=== PATIENT | male | born 1975 ===

== ENCOUNTER 2017-02-08 18:33 | Emergency (ER) | payer MEDICARE ==
[2017-02-08 18:38] VITALS: BMI 23.0
[2017-02-08 18:43] VITALS: TEMP 97.9; O2SAT 99
[2017-02-08] MEDS ORDERED: Alum-Mag Hydrox-Simethicone Susp (30 mL) PO STA (19:03)
--- NOTE | 2017-02-08 19:45 | ED PDOC ---
Arrival/HPI - General Chief Complaint: Abdominal Pain Time Seen by Provider: 02/08/17 18:54 - History of Present Illness Narrative History of Present Illness (Text): 02/08/17 19:44 Patient is a 41 y/o M with hx of Hep B cirrhosis, presenting with epigastric pain. Reports that 3 weeks ago he had ERCP at [facility]. He reports that he was pain free until yesterday when he developed epigastric/RUQ pain. Reports nausea. Denies vomiting, fever, dysuria, chest pain, shortness of breath, diarrhea/constipation. He reports that this pain is similar to prior episodes of pain that he has had. Reports GI follow-up on Sunday morning. Past Medical History - Provider Review Nursing Documentation Reviewed: Yes - Infectious Disease Hx of Infectious Diseases: None - Cardiac Hx Cardiac Disorders: No - Pulmonary Hx Respiratory Disorders: No - Neurological Hx Neurological Disorder: No - HEENT Hx HEENT Disorder: No - Renal Hx Renal Disorder: Yes Hx Kidney Stones: Yes - Endocrine/Metabolic Hx Endocrine Disorders: No - Hematological/Oncological Hx Blood Disorders: Yes Hx Hepatitis B: Yes - Integumentary Hx Dermatological Disorder: No Hx Basal Cell Carcinoma: No - Musculoskeletal/Rheumatological Hx Musculoskeletal Disorders: No - Gastrointestinal Hx Gastrointestinal Disorders: Yes Hx Gall Bladder Disease: Yes Hx Liver Failure: Yes (liver fibrosis) - Genitourinary/Gynecological Hx Prostate Problems: Yes - Psychiatric Hx Psychophysiologic Disorder: No Hx Substance Use: No - Surgical History Other/Comment: Endoscopic Retrograde Cholangiopancreatography. Liver surgery - Anesthesia Hx Anesthesia: Yes Hx Anesthesia Reactions: No Hx Malignant Hyperthermia: No - Suicidal Assessment Feels Threatened In Home Enviroment: No Family/Social History - Physician Review Nursing Documentation Reviewed: Yes Family/Social History: No Known Family HX Smoking Status: Never Smoked Hx Alcohol Use: No Hx Substance Use: No Allergies/Home Meds Allergies/Adverse Reactions: Allergies No Known Allergies Allergy (Verified 11/18/15 17:54) Home Medications: Home Meds Medication Instructions Recorded Confirmed Carvedilol [Coreg] 1 tab PO BID 12/25/15 02/08/17 Tenofovir [Viread] 300 mg PO DAILY 12/25/15 02/08/17 Ursodiol [Ursodiol] 1 tab PO BID 12/25/15 02/08/17 Review of Systems - Physician Review All systems were reviewed & negative as marked: Yes - Review of Systems Constitutional: absent: Weight Change Respiratory: absent: SOB, Cough, Sputum, Wheezing Cardiovascular: absent: Chest Pain, Palpitations, Edema, Calf Pain, FIERRO Gastrointestinal: Abdominal Pain, Nausea. absent: Constipation, Diarrhea, Vomiting Genitourinary Male: absent: Dysuria Skin: absent: Rash Psychiatric: absent: Anxiety Physical Exam Vital Signs Reviewed: Yes Vital Signs Temp Pulse Resp BP Pulse Ox 02/08/17 20:37 62 16 122/62 99 02/08/17 18:42 97.9 F 71 20 138/67 99 Temperature: Afebrile Blood Pressure: Normal Pulse: Regular Respiratory Rate: Normal Appearance: Positive for: Well-Appearing, Non-Toxic, Comfortable Pain Distress: None Mental Status: Positive for: Alert and Oriented X 3 - Systems Exam Head: Present: Atraumatic, Normocephalic Pupils: Present: PERRL Extroacular Muscles: Present: EOMI Conjunctiva: Present: Normal Mouth: Present: Moist Mucous Membranes Neck: Present: Normal Range of Motion Respiratory/Chest: Present: Clear to Auscultation Cardiovascular: Present: Regular Rate and Rhythm Abdomen: Present: Tenderness (epigastric). No: Distention, Guarding Back: Present: Normal Inspection Upper Extremity: Present: Normal Inspection Lower Extremity: Present: Normal Inspection Neurological: Present: GCS=15, CN II-XII Intact, Speech Normal Psychiatric: Present: Alert, Oriented x 3 Medical Decision Making ED Course and Treatment: 02/08/17 21:11 U/s Shows "Liver: Lobulated contour. Normal echogenicity. No discrete mass. No intrahepatic bile duct dilatation. Gallbladder: No gallstones. No wall thickening. No pericholecystic fluid. No sonographic Zelaya's sign. Common bile duct: No dilatation. No stones. Pancreas: Unremarkable as visualized. Kidneys: Normal echogenicity. 1.0 x 0.9 x 1.2 cm RIGHT renal cyst. No hydronephrosis. Spleen: Enlarged, 15.8 cm. Aorta: Obscured by overlying bowel gas. Inferior vena cava: Unremarkable. Free fluid: No significant free fluid. Other findings: Patent TIPS. IMPRESSION: 1. Cirrhosis. 2. Splenomegaly. 3. Incidental/non-acute findings are described above" EKG shows sinus bradycardia at 59bpm with LVH. No ST changes. Labs are at baseline. Patient has GI follow-up on February 12 (Sunday). Patient feels better and wants to go home. Will dc - Lab Interpretations Lab Results: 02/08/17 19:25 02/08/17 19:25 Lab Results 02/08/17 19:25: Sodium 142, Potassium 4.0, Chloride 109 H, Carbon Dioxide 26, Anion Gap 11, BUN 9, Creatinine 0.6, Est GFR ( Amer) > 60, Est GFR (Non- Af Amer) > 60, Random Glucose 112 H, Calcium 8.4, Phosphorus 3.7, Magnesium 2.0 , Total Bilirubin 1.3, AST 58, ALT 44, Alkaline Phosphatase 195 H, Total Protein 6.5, Albumin 2.7 L, Globulin 3.8, Albumin/Globulin Ratio 0.7 L, Lipase 523 H 02/08/17 19:25: WBC 2.4 L*, RBC 5.64, Hgb 13.0 L, Hct 38.1 L, MCV 67.6 L, MCH 23.0 L, MCHC 34.1, RDW 15.8 H, Plt Count 33 L*, Gran % 61.2, Lymph % (Auto) 28.8 , [place] % (Auto) 8.3 H, Eos % (Auto) 1.3 L, Baso % (Auto) 0.4, Gran # 1.47, Lymph # 0.7 L, [place] # 0.2, Eos # 0.0, Baso # 0.01 - RAD Interpretation Radiology Orders: 02/08/17 19:09 ABDOMEN COMPLETE [US] Stat - Medication Orders Current Medication Orders: Discontinued Medications Al Hydrox/Mg Hydrox/Simethicone (Maalox Plus 30 Ml) 30 ml PO STAT STA Stop: 02/08/17 19:04 Last Admin: 02/08/17 19:36 Dose: 30 ml Famotidine (Pepcid) 20 mg IVP STAT STA Stop: 02/08/17 19:04 Last Admin: 02/08/17 19:36 Dose: 20 mg IVP Administration Document 02/08/17 19:36 OCS (Rec: 02/08/17 19:36 OCS [id number]) Charges for Administration # of IVP Administrations 1 Disposition/Present on Arrival - Present on Arrival Any Indicators Present on Arrival: No History of DVT/PE: No History of Uncontrolled Diabetes: No Urinary Catheter: No History of Decub. Ulcer: No History Surgical Site Infection Following: None - Disposition Have Diagnosis and Disposition been Completed?: Yes Diagnosis: Epigastric pain Disposition: HOME/ ROUTINE Disposition Time: 21:11 Patient Plan: Discharge Condition: GOOD Additional Instructions: Follow-up with your GI Physician on Sunday. Return to ED if condition worsens. Follow-up with PMD within 2 days. Prescriptions: Famotidine [Pepcid] 40 mg PO DAILY #30 tab Referrals: Josue Morfin MD [Primary Care Provider] - Follow up with primary Forms: [place] (Citizen [place])
[2017-02-08 19:59] LABS: ALB/GLOB RATIO 0.7 (1.1-1.8); ALKALINE PHOSPHATASE 195 U/L (38-126); ALT/SGPT 44 U/L (7-56); AST/SGOT 58 U/L (17-59); BILIRUBIN,TOTAL 1.3 mg/dL (0.2-1.3); BLOOD UREA NITROGEN 9 mg/dL (7-21); CALCIUM 8.4 mg/dL (8.4-10.5); CARBON DIOXIDE 26 mmol/L (21-33); CHLORIDE 109 mmol/L (98-107); GFR AFRICAN-AMERICAN > 60; GLUCOSE,RANDOM 112 mg/dL (70-110); LIPASE 523 U/L (23-300); PHOSPHOROUS 3.7 mg/dL (2.5-4.5); SODIUM 142 mmol/L (132-148); TOTAL PROTEIN 6.5 g/dL (5.8-8.3)
[2017-02-08 20:02] LABS: BASO # 0.01 K/mm3 (0.0-2.0); BASO % 0.4 % (0.0-3.0); EOS % 1.3 % (1.5-5.0); GRAN # 1.47 (1.4-6.5); GRAN % 61.2 % (50.0-68.0); HEMATOCRIT 38.1 % (42.0-52.0); LYMPH # 0.7 (1.2-3.4); LYMPH % 28.8 % (22.0-35.0); MEAN CELL VOLUME 67.6 fl (80.0-105.0); MEAN CORPUSCULAR HGB CONC 34.1 g/dl (31.0-37.0); MONO # 0.2 (0.1-0.6); MONO % 8.3 % (1.0-6.0); RED CELL DISTRIBUTION WIDTH 15.8 % (11.5-14.5)
[2017-02-08 20:11] LABS: PLATELET COUNT 33 10^3/uL (120.0-450.0); WHITE BLOOD COUNT 2.4 10^3/ul (4.5-11.0)
[2017-02-08 20:38] VITALS: BP 122/62; PULSE 62; RESP 16
--- NOTE | 2017-02-08 21:05 | US ---
EXAM: US Abdomen Complete CLINICAL HISTORY: 41 years old, male; Pain; Abdominal pain; Epigastric; Prior surgery; Surgery date: 6+ months; Surgery type: Tips 8 yrs; Additional info: Epigastric, ruq pain TECHNIQUE: Real-time ultrasound of the abdomen (complete) with image documentation. COMPARISON: CT - ABD PELVIS W/O PO OR IV CONT 01/12/2016 9:50:05 AM FINDINGS: Liver: Lobulated contour. Normal echogenicity. No discrete mass. No intrahepatic bile duct dilatation. Gallbladder: No gallstones. No wall thickening. No pericholecystic fluid. No sonographic Zelaya's sign. Common bile duct: No dilatation. No stones. Pancreas: Unremarkable as visualized. Kidneys: Normal echogenicity. 1.0 x 0.9 x 1.2 cm RIGHT renal cyst. No hydronephrosis. Spleen: Enlarged, 15.8 cm. Aorta: Obscured by overlying bowel gas. Inferior vena cava: Unremarkable. Free fluid: No significant free fluid. Other findings: Patent TIPS. IMPRESSION: 1. Cirrhosis. 2. Splenomegaly. 3. Incidental/non-acute findings are described above.
== END 2017-02-08 21:12 | disposition home or self-care (01) ==
LOC: ED 18:33
DX: R10.13 Epigastric pain (principal); B19.10 Unspecified viral hepatitis B without hepatic coma; K74.0 Hepatic fibrosis

== ENCOUNTER 2017-08-09 16:14 | Emergency (ER) | payer MEDICARE ==
[2017-08-09 17:42] VITALS: BMI 21.9
[2017-08-09 17:58] VITALS: RESP 18; TEMP 98.5
--- NOTE | 2017-08-09 18:22 | ED PDOC ---
Arrival/HPI - General Chief Complaint: Back Pain Time Seen by Provider: 08/09/17 17:35 Historian: Patient - History of Present Illness Narrative History of Present Illness (Text): 08/09/17 18:22 Patient is a 42 y/o M with hx of Hep B cirrhosis, renal stone, presenting with right flank pain x 2 hours. Patient stated " my kidney hurts", pointing at his right flank. Patient stated he had similar symptom in the past affecting his left "kidney". Patient denies other somatic complains. Time/Duration: Other (see hpi) Quality: Aching Context: Home Past Medical History - Provider Review Nursing Documentation Reviewed: Yes - Infectious Disease Hx of Infectious Diseases: None - Cardiac Hx Cardiac Disorders: No - Pulmonary Hx Respiratory Disorders: No - Neurological Hx Neurological Disorder: No - HEENT Hx HEENT Disorder: No - Renal Hx Renal Disorder: Yes Hx Kidney Stones: Yes - Endocrine/Metabolic Hx Endocrine Disorders: No - Hematological/Oncological Hx Blood Disorders: Yes Hx Hepatitis B: Yes - Integumentary Hx Dermatological Disorder: No Hx Basal Cell Carcinoma: No - Musculoskeletal/Rheumatological Hx Musculoskeletal Disorders: No - Gastrointestinal Hx Gastrointestinal Disorders: Yes Hx Gall Bladder Disease: Yes Hx Liver Failure: Yes (liver fibrosis) - Genitourinary/Gynecological Hx Prostate Problems: Yes - Psychiatric Hx Psychophysiologic Disorder: No Hx Substance Use: No - Surgical History Other/Comment: Endoscopic Retrograde Cholangiopancreatography. Liver surgery - Anesthesia Hx Anesthesia: Yes Hx Anesthesia Reactions: No Hx Malignant Hyperthermia: No - Suicidal Assessment Feels Threatened In Home Enviroment: No Family/Social History - Physician Review Nursing Documentation Reviewed: Yes Family/Social History: Other (noncontributory) Smoking Status: Never Smoked Hx Alcohol Use: No Hx Substance Use: No Allergies/Home Meds Allergies/Adverse Reactions: Allergies No Known Allergies Allergy (Verified 08/09/17 17:41) Home Medications: Home Meds Medication Instructions Recorded Confirmed Carvedilol [Coreg] 1 tab PO BID 12/25/15 08/09/17 Tenofovir [Viread] 300 mg PO DAILY 12/25/15 08/09/17 Ursodiol [Ursodiol] 1 tab PO BID 12/25/15 08/09/17 Review of Systems - Review of Systems Constitutional: Normal. absent: Fatigue, Weight Change, Fevers, Night Sweats Eyes: Normal ENT: Normal Respiratory: Normal Cardiovascular: Normal Gastrointestinal: Abdominal Pain (right flank pain), Nausea. absent: Constipation, Diarrhea, Vomiting Genitourinary Male: Normal. absent: Dysuria, Frequency, Hematuria Musculoskeletal: Normal Skin: Normal Neurological: Normal Endocrine: Normal Hemo/Lymphatic: Normal Psychiatric: Normal Physical Exam Vital Signs Temp Pulse Resp BP Pulse Ox 08/09/17 20:34 62 18 117/64 100 08/09/17 17:58 98.5 F 61 18 101/51 L 97 Temperature: Afebrile Blood Pressure: Normal Pulse: Regular Respiratory Rate: Normal Appearance: Positive for: Well-Appearing, Non-Toxic, Comfortable Pain Distress: None Mental Status: Positive for: Alert and Oriented X 3 - Systems Exam Head: Present: Atraumatic, Normocephalic Pupils: Present: PERRL Extroacular Muscles: Present: EOMI Conjunctiva: Present: Normal Mouth: Present: Moist Mucous Membranes Neck: Present: Normal Range of Motion. No: Meningeal Signs Respiratory/Chest: Present: Clear to Auscultation, Good Air Exchange. No: Respiratory Distress, Accessory Muscle Use Cardiovascular: Present: Regular Rate and Rhythm, Normal S1, S2. No: Murmurs Abdomen: Present: Normal Bowel Sounds. No: Tenderness, Distention, Peritoneal Signs, Rebound, Guarding Back: Present: Normal Inspection. No: CVA Tenderness Upper Extremity: Present: Normal Inspection. No: Cyanosis, Edema Lower Extremity: Present: Normal Inspection. No: Edema Neurological: Present: GCS=15, CN II-XII Intact, Speech Normal, Motor Func Grossly Intact, Normal Sensory Function, Normal Cerebellar Funct, Gait Normal Skin: Present: Warm, Dry, Normal Color. No: Rashes Psychiatric: Present: Alert, Oriented x 3, Normal Insight, Normal Concentration Medical Decision Making - Lab Interpretations Lab Results: 08/09/17 19:37 08/09/17 19:37 Lab Results 08/09/17 19:37: PT 17.1 H, INR 1.49 H, APTT 38.3 H 08/09/17 19:37: Ammonia 55 H 08/09/17 19:37: Sodium 143, Potassium 4.0, Chloride 109 H, Carbon Dioxide 27, Anion Gap 11, BUN 14, Creatinine 0.7 L, Est GFR ( Amer) > 60, Est GFR ( Non-Af Amer) > 60, Random Glucose 115 H, Calcium 8.9, Total Bilirubin 1.8 H, AST 66 H, ALT 43, Alkaline Phosphatase 238 H D, Total Protein 7.1, Albumin 2.9 L , Globulin 4.1, Albumin/Globulin Ratio 0.7 L, Lipase 150 08/09/17 19:37: WBC 2.8 L*, RBC 6.14 H, Hgb 13.8 L, Hct 41.5 L, MCV 67.6 L, MCH 22.5 L, MCHC 33.3, RDW 16.7 H, Plt Count 45 L*, Gran % 65.2, Lymph % (Auto) 28.0 , [place] % (Auto) 6.1 H, Eos % (Auto) 0.7 L, Baso % (Auto) 0.0, Gran # 1.82, Lymph # (Auto) 0.8 L, [place] # (Auto) 0.2, Eos # (Auto) 0.0, Baso # (Auto) 0.00 08/09/17 19:35: Urine Color Yellow, Urine Appearance Sl cloudy, Urine pH 8.5, Ur Specific [place] 1.015, Urine Protein Trace H, Urine Glucose (UA) 250 H, Urine Ketones Negative, Urine Blood Moderate H, Urine Nitrate Negative, Urine Bilirubin Negative, Urine Urobilinogen 1.0 H, Ur Leukocyte Esterase Negative, Urine RBC 25 - 30, Urine WBC 0 - 2, Ur Epithelial Cells 0 - 2, Urine Bacteria Few - RAD Interpretation Narrative RAD Interpretations (Text): 08/09/17 21:36 EXAM: CT Abdomen and Pelvis Without Intravenous Contrast FINDINGS: LUNG BASES: No significant abnormality identified. ABDOMEN: LIVER: Liver is cirrhotic in appearance. Multiple abdominal collateral vessels again seen, compatible with portal hypertension. TIPS shunt again seen in the liver, stable in position. Note that shunt patency cannot be evaluated on this unenhanced exam. Stable appearance of an indeterminate 2 x 1 cm low density liver lesion, not definitely a cyst given its density. No evidence of diffuse liver lesions. GALLBLADDER AND BILE DUCTS: Gallbladder appears diffusely thick walled, image 61 of series 3. No evidence of pericholecystic fluid, pericholecystic inflammation, gallbladder dilatation, or radiopaque gallstones. No evidence of significant biliary ductal dilatation. PANCREAS: No CT evidence of acute pancreatitis. SPLEEN: Stable moderate splenomegaly, with the spleen measuring 15 cm in AP dimensions. ADRENALS: No acute abnormality of the adrenal glands identified. KIDNEYS AND URETERS: Nonobstructing right renal stones. Low density lesion in the right kidney, most likely a cyst. This measures 1.1 cm No evidence of hydroureteronephrosis. STOMACH AND BOWEL: No acute abnormality of the stomach, small bowel or colon identified. No evidence of bowel obstruction. APPENDIX: Appendix is seen, and is within normal limits in appearance. PELVIS: BLADDER: No acute abnormality of the bladder identified. REPRODUCTIVE: Prostate gland is enlarged. ABDOMEN and PELVIS: INTRAPERITONEAL SPACE: No evidence of free intraperitoneal air or fluid. BONES/JOINTS: No acute fractures or other acute bony abnormality noted. SOFT TISSUES: No acute abnormality of the visualized soft tissues is seen. VASCULATURE: No evidence of abdominal aortic aneurysm. Negative. LYMPH NODES: No evidence of diffuse lymphadenopathy. IMPRESSION: - Gallbladder wall thickening, with no additional evidence of gallbladder pathology by CT. This could be due to underlying chronic liver disease. If there is any clinical concern for early acute cholecystitis, consider right upper quadrant ultrasound for further evaluation. - Otherwise, no evidence of significant acute process. - Stable findings compared to an 01/12/2016 CT. - Cirrhotic liver, with a TIPS shunt in place. - Stable 2 cm indeterminate liver lesion. This could be further evaluated with nonemergent liver protocol CT or MRI, as clinically indicated. - Stable splenomegaly. - See above for remaining findings. Radiology Orders: 08/09/17 18:23 ABD & PELVIS W/O PO OR IV CONT [CT] Stat - Medication Orders Current Medication Orders: Discontinued Medications Sodium Chloride (Sodium Chloride 0.9%) 1,000 mls @ 999 mls/hr IV .Q1H1M STA Stop: 08/09/17 19:24 Last Admin: 08/09/17 19:41 Dose: 999 mls/hr eMAR Start Stop Document 08/09/17 19:41 CNR (Rec: 08/09/17 19:41 CNR [id number]) Intravenous Solution Start Date 08/09/17 Start Time 19:41 Ketorolac Tromethamine (Toradol) 15 mg IVP STAT STA Stop: 08/09/17 18:25 Last Admin: 08/09/17 19:40 Dose: 15 mg MAR Pain Assessment Document 08/09/17 19:40 CNR (Rec: 08/09/17 19:40 CNR [id number]) Pain Reassessment Is this a pain reassessment? Yes IVP Administration Document 08/09/17 19:40 CNR (Rec: 08/09/17 19:40 CNR [id number]) Charges for Administration # of IVP Administrations 1 Disposition/Present on Arrival - Present on Arrival Any Indicators Present on Arrival: No History of DVT/PE: No History of Uncontrolled Diabetes: No Urinary Catheter: No History of Decub. Ulcer: No History Surgical Site Infection Following: None - Disposition Have Diagnosis and Disposition been Completed?: Yes Diagnosis: Right flank pain, Liver cirrhosis Disposition: HOME/ ROUTINE Disposition Time: 21:41 Patient Plan: Discharge Condition: GOOD Discharge Instructions (ExitCare): Acute Abdomen (Belly Pain) Additional Instructions: Call private doctor and [employer] for follow up visit in 1-2 days. Continue with home Lactulose to treat elevated ammonia. Return to emergency if symptoms worsen. Prescriptions: Ibuprofen [Motrin] 400 mg PO Q8H PRN #20 tab PRN Reason: Pain, Severe (8-10) Referrals: Josue Morfin MD [Primary Care Provider] - Follow up with primary Forms: [employer] (Chinese)
[2017-08-09] MEDS ORDERED: Sodium Chloride 0.9% 1,000 ML IV STA (18:24)
[2017-08-09 19:59] LABS: PH,URINE 8.5 (4.7-8.0); URINE BILIRUBIN NEGATIVE (NEGATIVE); URINE BLOOD MODERATE (NEGATIVE); URINE GLUCOSE (UA) 250 mg/dL (NEGATIVE); URINE LEUKOCYTE ESTERASE NEGATIVE Leu/uL (NEGATIVE); URINE PROTEIN TRACE mg/dL (<30 mg/dL)
[2017-08-09 20:00] LABS: EOS % 0.7 % (1.5-5.0); GRAN # 1.82 (1.4-6.5); GRAN % 65.2 % (50.0-68.0); HEMOGLOBIN 13.8 g/dL (14.0-18.0); LYMPH # 0.8 (1.2-3.4); MEAN CELL VOLUME 67.6 fl (80.0-105.0); MEAN CORPUSCULAR HEMOGLOBIN 22.5 pg (25.0-35.0); MEAN CORPUSCULAR HGB CONC 33.3 g/dl (31.0-37.0); MONO # 0.2 (0.1-0.6); MONO % 6.1 % (1.0-6.0); PLATELET COUNT 45 10^3/uL (120.0-450.0); RBC 6.14 10^6/uL (3.5-6.1); RED CELL DISTRIBUTION WIDTH 16.7 % (11.5-14.5)
[2017-08-09 20:02] LABS: INR 1.49 (0.93-1.08); PARTIAL THROMBOPLASTIN TIME 38.3 Seconds (25.1-36.5); PROTHROMBIN TIME 17.1 SECONDS (9.4-12.5)
[2017-08-09 20:03] LABS: URINE COLOR YELLOW (YELLOW)
[2017-08-09 20:05] LABS: ALB/GLOB RATIO 0.7 (1.1-1.8); ALBUMIN 2.9 g/dL (3.0-4.8); ALT/SGPT 43 U/L (7-56); AST/SGOT 66 U/L (17-59); BLOOD UREA NITROGEN 14 mg/dL (7-21); CALCIUM 8.9 mg/dL (8.4-10.5); GFR AFRICAN-AMERICAN > 60; GFR NON-AFRICAN AMERICAN > 60; LIPASE 150 U/L (23-300)
[2017-08-09 20:06] LABS: URINE APPEARANCE SL CLOUDY (CLEAR)
[2017-08-09 20:07] LABS: URINE BACTERIA FEW (NEG); URINE EPITHELIAL CELLS 0 - 2 /hpf (0-5); URINE RBC 25 - 30 /hpf (0-2); URINE WBC 0 - 2 /hpf (0-6)
[2017-08-09 20:10] LABS: WHITE BLOOD COUNT 2.8 10^3/ul (4.5-11.0)
[2017-08-09 20:35] VITALS: BP 117/64; PULSE 62; O2SAT 100
--- NOTE | 2017-08-09 21:33 | CT ---
EXAM: CT Abdomen and Pelvis Without Intravenous Contrast EXAM DATE/TIME: 08/09/2017 6:23 PM CLINICAL HISTORY: 42 years old, male; Pain; Abdominal pain; Flank; Right; Prior surgery; Surgery type: Liver SX - endoscopic retrograde cholangopancreatography; Additional info: Right flank pain TECHNIQUE: Axial computed tomography images of the abdomen and pelvis without intravenous contrast. All CT scans at this facility use one or more dose reduction techniques, viz.: automated exposure control; ma/kV adjustment per patient size (including targeted exams where dose is matched to indication; i.e. head); or iterative reconstruction technique. Coronal and sagittal reformatted images were created and reviewed. COMPARISON: Prior CT abdomen and pelvis of 2016-01-12 FINDINGS: LUNG BASES: No significant abnormality identified. ABDOMEN: LIVER: Liver is cirrhotic in appearance. Multiple abdominal collateral vessels again seen, compatible with portal hypertension. TIPS shunt again seen in the liver, stable in position. Note that shunt patency cannot be evaluated on this unenhanced exam. Stable appearance of an indeterminate 2 x 1 cm low density liver lesion, not definitely a cyst given its density. No evidence of diffuse liver lesions. GALLBLADDER AND BILE DUCTS: Gallbladder appears diffusely thick walled, image 61 of series 3. No evidence of pericholecystic fluid, pericholecystic inflammation, gallbladder dilatation, or radiopaque gallstones. No evidence of significant biliary ductal dilatation. PANCREAS: No CT evidence of acute pancreatitis. SPLEEN: Stable moderate splenomegaly, with the spleen measuring 15 cm in AP dimensions. ADRENALS: No acute abnormality of the adrenal glands identified. KIDNEYS AND URETERS: Nonobstructing right renal stones. Low density lesion in the right kidney, most likely a cyst. This measures 1.1 cm No evidence of hydroureteronephrosis. STOMACH AND BOWEL: No acute abnormality of the stomach, small bowel or colon identified. No evidence of bowel obstruction. APPENDIX: Appendix is seen, and is within normal limits in appearance. PELVIS: BLADDER: No acute abnormality of the bladder identified. REPRODUCTIVE: Prostate gland is enlarged. ABDOMEN and PELVIS: INTRAPERITONEAL SPACE: No evidence of free intraperitoneal air or fluid. BONES/JOINTS: No acute fractures or other acute bony abnormality noted. SOFT TISSUES: No acute abnormality of the visualized soft tissues is seen. VASCULATURE: No evidence of abdominal aortic aneurysm. Negative. LYMPH NODES: No evidence of diffuse lymphadenopathy. IMPRESSION: - Gallbladder wall thickening, with no additional evidence of gallbladder pathology by CT. This could be due to underlying chronic liver disease. If there is any clinical concern for early acute cholecystitis, consider right upper quadrant ultrasound for further evaluation. - Otherwise, no evidence of significant acute process. - Stable findings compared to an 01/12/2016 CT. - Cirrhotic liver, with a TIPS shunt in place. - Stable 2 cm indeterminate liver lesion. This could be further evaluated with nonemergent liver protocol CT or MRI, as clinically indicated. - Stable splenomegaly. - See above for remaining findings.
== END 2017-08-09 22:14 | disposition home or self-care (01) ==
LOC: ED 16:14
DX: K74.60 Unspecified cirrhosis of liver (principal); R10.9 Unspecified abdominal pain
CPT/HCPCS: 74176; 80053; 81001; 82140; 83690; 85025; 85610; 85730; 96374; 99283; J1885; J7040

== ENCOUNTER 2017-08-13 23:21 | Inpatient (IN) | payer MEDICARE ==
[2017-08-13 23:48] VITALS: O2SAT 99
[2017-08-14] MEDS ORDERED: HYDROmorphone 1 mg/ml ISec IVP STA (00:01)
[2017-08-14] MEDS ORDERED: Sodium Chloride 0.9% 1,000 ML IV STA (00:01)
--- NOTE | 2017-08-14 00:41 | ED PDOC ---
Arrival/HPI - General Chief Complaint: Male Genitourinary Time Seen by Provider: 08/13/17 23:54 Historian: Patient - History of Present Illness Narrative History of Present Illness (Text): 08/14/17 00:20 42 year old male, whose past medical history includes Hep B cirrhosis and renal stone, presents to the emergency department complaining of worsening left flank pain that began 2 days ago. Patient reports he was in the emergency department a few days ago for similar symptoms when he reportedly states he was diagnosed with kidney stones and discharged with no pain medications and to follow up with the urologist. Patient states he has not followed up with the urologist yet. Patient reports blood in urine, but denies any fever, chills, chest pain, shortness of breath, nausea, vomiting, diarrhea, back pain, neck pain, headache , dizziness, or any other complaints. Time/Duration: Other (few days ) Symptom Onset: Gradual Symptom Course: Worsening Activities at Onset: Light Context: Home Past Medical History - Infectious Disease Hx of Infectious Diseases: None - Cardiac Hx Cardiac Disorders: No - Pulmonary Hx Respiratory Disorders: No - Neurological Hx Neurological Disorder: No - HEENT Hx HEENT Disorder: No - Renal Hx Renal Disorder: Yes Hx Kidney Stones: Yes - Endocrine/Metabolic Hx Endocrine Disorders: No - Hematological/Oncological Hx Blood Disorders: Yes Hx Hepatitis B: Yes - Integumentary Hx Dermatological Disorder: No Hx Basal Cell Carcinoma: No - Musculoskeletal/Rheumatological Hx Musculoskeletal Disorders: No - Gastrointestinal Hx Gastrointestinal Disorders: Yes Hx Gall Bladder Disease: Yes Hx Liver Failure: Yes (liver fibrosis) Other/Comment: Liver Cirrhosis - Genitourinary/Gynecological Hx Prostate Problems: Yes Other/Comment: Kidney Stones - Psychiatric Hx Psychophysiologic Disorder: No Hx Substance Use: No - Surgical History Other/Comment: Endoscopic Retrograde Cholangiopancreatography. Liver surgery - Anesthesia Hx Anesthesia: Yes Hx Anesthesia Reactions: No Hx Malignant Hyperthermia: No - Suicidal Assessment Feels Threatened In Home Enviroment: No Family/Social History Family/Social History: No Known Family HX Smoking Status: Never Smoked Hx Alcohol Use: No Hx Substance Use: No Allergies/Home Meds Allergies/Adverse Reactions: Allergies No Known Allergies Allergy (Verified 08/09/17 17:41) Home Medications: Home Meds Medication Instructions Recorded Confirmed Carvedilol [Coreg] 1 tab PO BID 12/25/15 08/13/17 Tenofovir [Viread] 300 mg PO DAILY 12/25/15 08/13/17 Ursodiol 1 tab PO BID 12/25/15 08/13/17 Percocet 10-325 mg Tablet 10 - 325 mg PO Q6H 08/14/17 08/14/17 Review of Systems - Physician Review All systems were reviewed & negative as marked: Yes - Review of Systems Constitutional: absent: Fevers, Other (Chills) Respiratory: absent: SOB Cardiovascular: absent: Chest Pain Gastrointestinal: Abdominal Pain (right flank pain). absent: Diarrhea, Nausea, Vomiting Genitourinary Male: Hematuria. absent: Dysuria, Frequency Musculoskeletal: absent: Back Pain, Neck Pain Neurological: absent: Headache, Dizziness Physical Exam Vital Signs Reviewed: Yes Vital Signs Temp Pulse Resp BP Pulse Ox 08/14/17 03:10 65 18 125/67 99 08/13/17 23:45 98.2 F 60 19 123/63 99 Temperature: Afebrile Blood Pressure: Normal Pulse: Regular Respiratory Rate: Normal Appearance: Positive for: Well-Appearing, Non-Toxic, Comfortable Pain Distress: None Mental Status: Positive for: Alert and Oriented X 3 - Systems Exam Head: Present: Atraumatic, Normocephalic Pupils: Present: PERRL Extroacular Muscles: Present: EOMI Conjunctiva: Present: Normal Mouth: Present: Moist Mucous Membranes Neck: Present: Normal Range of Motion Respiratory/Chest: Present: Clear to Auscultation, Good Air Exchange. No: Respiratory Distress, Accessory Muscle Use Cardiovascular: Present: Regular Rate and Rhythm, Normal S1, S2. No: Murmurs Abdomen: No: Tenderness, Distention, Peritoneal Signs Back: Present: Normal Inspection Upper Extremity: Present: Normal Inspection. No: Cyanosis, Edema Lower Extremity: Present: Normal Inspection. No: Edema Neurological: Present: GCS=15, CN II-XII Intact, Speech Normal Skin: Present: Warm, Dry, Normal Color. No: Rashes Psychiatric: Present: Alert, Oriented x 3, Normal Insight, Normal Concentration Medical Decision Making ED Course and Treatment: 08/14/17 00:30 Impression: 42 year old male presents complaining of right flank pain that began a few days ago associated with hematuria. Plan: -- VBG -- CT Abs, Pel No PO or IV Contrast -- Labs -- Dilaudid, IV Fluids, Toradol, Zofran Inj -- Urinalysis -- Reassess and disposition Prior Visits: Notes and results from previous visits were reviewed. Patient was last seen in the emergency department on 08/09/17 presents complaining of right flank pain that began 2 hours ago. Patient was discharged Progress Notes: Went back to evaluate patient again with shipwright to verify patient was discharged with the diagnosis of kidney stones due to the different diagnosis seen in his chart. CT results from 08/09/17 shows: EXAM: CT Abdomen and Pelvis Without Intravenous Contrast IMPRESSION: - Gallbladder wall thickening, with no additional evidence of gallbladder pathology by CT. This could be due to underlying chronic liver disease. If there is any clinical concern for early acute cholecystitis, consider right upper quadrant ultrasound for further evaluation. - Otherwise, no evidence of significant acute process. - Stable findings compared to an 01/12/2016 CT. - Cirrhotic liver, with a TIPS shunt in place. - Stable 2 cm indeterminate liver lesion. This could be further evaluated with nonemergent liver protocol CT or MRI, as clinically indicated. - Stable splenomegaly. - See above for remaining findings. 08/14/17 02:35 EXAM: CT Abdomen and Pelvis Without Intravenous Contrast Dictated and Authenticated by: Aleshia Blake MD 08/14/2017 2:08 AM IMPRESSION: 1. 5 mm calculus is noted in the proximal to mid ureter causing mild right hydronephrosis. 2. The spleen is massively enlarged. 3. The liver demonstrates heterogenous appearance suspicious for hepatoparenchyma disease. There is a low-density ovoid focus noted in the liver measuring 1.5 cm cannot be evaluated. Dedicated liver imaging is advised on non-emergent basis. 08/14/17 04:06 Case discussed with [facility] and Dr. Velasquez who is aware and agrees with the plan. Accepts patient into his service. - Lab Interpretations Microbiology Results: Microbiology Results 08/14/17 00:15 Urine,Clean Catch Urine Culture - Final No Growth (<1,000 CFU/ML) Lab Results: 08/14/17 00:20 08/14/17 00:20 Lab Results 08/14/17 00:50: Urine Opiates Screen Negative, Urine Methadone Screen Negative, Ur Barbiturates Screen Negative, Ur Phencyclidine Scrn Negative, Ur Amphetamines Screen Negative, U Benzodiazepines Scrn Negative, U Oth Cocaine Metabols Negative, U Cannabinoids Screen Negative 08/14/17 00:50: Ammonia 35 H 08/14/17 00:50: pO2 56 H, VBG pH 7.34, VBG pCO2 47.0, VBG HCO3 25.4, VBG Total CO2 26.8, VBG O2 Sat (Calc) 92.7 H, VBG Base Excess -0.8 L, VBG Potassium 3.9, Glucose 93, Lactate 1.2, FiO2 21.0, Sodium 142.0, Chloride 111.0 H, Venous Blood Potassium 3.9 08/14/17 00:20: Alcohol, Quantitative < 10 08/14/17 00:20: Sodium 141, Potassium 4.0, Chloride 109 H, Carbon Dioxide 25, Anion Gap 10, BUN 13, Creatinine 0.8, Est GFR ( Amer) > 60, Est GFR (Non- Af Amer) > 60, Random Glucose 96, Calcium 8.6, Total Bilirubin 1.4 H, Direct Bilirubin 0.5 H, AST 60 H, ALT 50, Alkaline Phosphatase 225 H, Total Protein 6.8 , Albumin 2.8 L, Globulin 4.0, Albumin/Globulin Ratio 0.7 L, Lipase 412 H 08/14/17 00:20: PT 16.9 H, INR 1.47 H 08/14/17 00:20: WBC 2.4 L*, RBC 5.62, Hgb 12.8 L, Hct 37.6 L, MCV 66.9 L, MCH 22.8 L, MCHC 34.0, RDW 16.7 H, Plt Count 45 L*, Gran % 61.1, Lymph % (Auto) 29.1 , Payne % (Auto) 7.8 H, Eos % (Auto) 1.6, Baso % (Auto) 0.4, Gran # 1.49, Lymph # (Auto) 0.7 L, Payne # (Auto) 0.2, Eos # (Auto) 0.0, Baso # (Auto) 0.01 08/14/17 00:15: Urine Color Red, Urine Appearance Cloudy, Urine pH 8.5, Ur Specific [place] 1.020, Urine Protein 100 H, Urine Glucose (UA) Negative, Urine Ketones Trace H, Urine Blood Large H, Urine Nitrate Positive H, Urine Bilirubin Negative, Urine Urobilinogen 1.0 H, Ur Leukocyte Esterase Trace H, Urine RBC Tntc, Urine WBC 1 - 3, Ur Epithelial Cells 0 - 2, Urine Bacteria Small I have reviewed the lab results: Yes - RAD Interpretation Radiology Orders: 08/14/17 00:05 ABD,PEL NO PO or IV (RAP RES) [CT] Stat - Medication Orders Current Medication Orders: Discontinued Medications Carvedilol (Coreg) 3.125 mg PO BID [facility] Last Admin: 08/14/17 10:08 Dose: 3.125 mg MAR Pulse and Blood Pressure Document 08/14/17 10:08 [facility] [place] (Rec: 08/14/17 10:09 [id number]) Blood Pressure Blood Pressure (100/60-150/90) 116/62 Famotidine (Pepcid) 40 mg PO DAILY [facility] Last Admin: 08/14/17 10:08 Dose: 40 mg Hydromorphone HCl (Dilaudid) 2 mg IVP STAT STA Stop: 08/14/17 00:02 Last Admin: 08/14/17 00:27 Dose: 2 mg MAR Pain Assessment Document 08/14/17 00:27 RD (Rec: 08/14/17 00:28 RD [id number]) Pain Reassessment Is this a pain reassessment? No Sleep Is patient sleeping during reassessment? No Presence of Pain Presence of Pain Yes Location Left, Right or Bilateral Right Upper or Lower Lower Pain Location Body Site Back Description Description Sharp Intensity of Pain at present 8 Pain Behavior Guarding Irritability IVP Administration Document 08/14/17 00:27 RD (Rec: 08/14/17 00:28 RD [id number]) Charges for Administration # of IVP Administrations 1 Sodium Chloride (Sodium Chloride 0.9%) 1,000 mls @ 999 mls/hr IV .Q1H1M STA Stop: 08/14/17 01:01 Last Admin: 08/14/17 00:20 Dose: 999 mls/hr eMAR Start Stop Document 08/14/17 00:20 RD (Rec: 08/14/17 00:26 RD [id number]) Intravenous Solution Start Date 08/14/17 Start Time 00:20 End Date 08/14/17 End time 01:20 Total Infusion Time 60 Ceftriaxone Sodium (Rocephin 2 Gm Ivpb) 2 gm in 100 mls @ 100 mls/hr IVPB STAT STA PRN Reason: Protocol Stop: 08/14/17 04:55 Last Admin: 08/14/17 04:30 Dose: 100 mls/hr eMAR Start Stop Document 08/14/17 04:30 JOL (Rec: 08/14/17 04:44 JOL [id number]) Intravenous Solution Start Date 08/14/17 Start Time 04:30 End Date 08/14/17 End time 05:00 Total Infusion Time 30 Sodium Chloride (Sodium Chloride 0.9%) 1,000 mls @ 100 mls/hr IV .Q10H FLAQUITA Last Admin: 08/14/17 04:45 Dose: 100 mls/hr eMAR Start Stop Document 08/14/17 04:45 JOL (Rec: 08/14/17 04:45 JOL [id number]) Intravenous Solution Start Date 08/14/17 Start Time 04:45 Ibuprofen (Motrin Tab) 400 mg PO Q6H PRN PRN Reason: Pain, Mild (1-3) Ketorolac Tromethamine (Toradol) 30 mg IVP STAT STA Stop: 08/14/17 00:02 Last Admin: 08/14/17 00:23 Dose: 30 mg MAR Pain Assessment Document 08/14/17 00:23 RD (Rec: 08/14/17 00:27 RD [id number]) Pain Reassessment Is this a pain reassessment? No Sleep Is patient sleeping during reassessment? No Presence of Pain Presence of Pain Yes Location Left, Right or Bilateral Right Upper or Lower Lower Pain Location Body Site Back Description Description Sharp Intensity of Pain at present 8 Pain Behavior Guarding Irritability IVP Administration Document 08/14/17 00:23 RD (Rec: 08/14/17 00:27 RD [id number]) Charges for Administration # of IVP Administrations 1 Ketorolac Tromethamine (Toradol) 30 mg IVP Q6H PRN PRN Reason: Pain, moderate (4-7) Last Admin: 08/14/17 15:07 Dose: 30 mg MAR Pain Assessment Document 08/14/17 15:07 DM (Rec: 08/14/17 15:10 [id number]) Pain Reassessment Is this a pain reassessment? No Sleep Is patient sleeping during reassessment? No Presence of Pain Presence of Pain Yes Pain Scale Used Pain Scale Used Numeric Location Left, Right or Bilateral Right Pain Location Body Site Back Description Description Stabbing Intensity of Pain at present 6 Pain Behavior Guarding Aggravating Factors None Alleviating Factors/Management Medication Techniques Alleviating Factors Medication IVP Administration Document 08/14/17 15:07 [facility] [place] (Rec: 08/14/17 15:10 [email or web address] Charges for Administration # of IVP Administrations 1 Lactulose (Enulose) 10 gm PO ONCE ONE Stop: 08/14/17 04:57 Levofloxacin/Dextrose (Levaquin 750mg) 750 mg IVPB DAILY [facility] PRN Reason: Protocol Last Admin: 08/14/17 10:09 Dose: 750 mg eMAR Start Stop Document 08/14/17 10:09 [facility] [place] (Rec: 08/14/17 10:10 [id number] Intravenous Solution Start Date 08/14/17 Start Time 10:09 End Date 08/14/17 End time 11:09 Total Infusion Time 60 Ondansetron HCl (Zofran Inj) 8 mg IVP STAT STA Stop: 08/14/17 00:02 Last Admin: 08/14/17 00:20 Dose: 8 mg Rifaximin (Xifaxan) 550 mg PO BID [facility] PRN Reason: Protocol Last Admin: 08/14/17 10:08 Dose: 550 mg Tamsulosin HCl (Flomax) 0.4 mg PO DAILY [facility] Last Admin: 08/14/17 10:08 Dose: 0.4 mg Tenofovir Disoproxil Fumarate (Viread) 300 mg PO DAILY [facility] PRN Reason: Protocol Last Admin: 08/14/17 10:08 Dose: 300 mg Ursodiol (Actigall) 300 mg PO BID [facility] Last Admin: 08/14/17 10:08 Dose: 300 mg - Scribe Statement The provider has reviewed the documentation as recorded by the Charlie Vyas Provider Scribe Attestation: All medical record entries made by the Bronwyniblexi were at my direction and personally dictated by me. I have reviewed the chart and agree that the record accurately reflects my personal performance of the history, physical exam, medical decision making, and the department course for this patient. I have also personally directed, reviewed, and agree with the discharge instructions and disposition. Disposition/Present on Arrival - Present on Arrival Any Indicators Present on Arrival: No History of DVT/PE: No History of Uncontrolled Diabetes: No Urinary Catheter: No History of Decub. Ulcer: No History Surgical Site Infection Following: None - Disposition Have Diagnosis and Disposition been Completed?: Yes Diagnosis: Kidney stone, Hydronephrosis, Hepatic insufficiency Disposition: HOSPITALIZED Disposition Time: 04:00 Patient Plan: Admission Condition: GOOD
[2017-08-14 01:00] LABS: PH,URINE 8.5 (4.7-8.0); URINE APPEARANCE CLOUDY (CLEAR); URINE BILIRUBIN NEGATIVE (NEGATIVE); URINE BLOOD LARGE (NEGATIVE); URINE COLOR RED (YELLOW); URINE GLUCOSE (UA) NEGATIVE (NEGATIVE); URINE LEUKOCYTE ESTERASE TRACE Leu/uL (NEGATIVE); URINE PROTEIN 100 mg/dL (<30 mg/dL)
[2017-08-14 01:01] LABS: BASO # 0.01 K/mm3 (0.0-2.0); BASO % 0.4 % (0.0-3.0); EOS % 1.6 % (1.5-5.0); GRAN # 1.49 (1.4-6.5); GRAN % 61.1 % (50.0-68.0); HEMOGLOBIN 12.8 g/dL (14.0-18.0); LYMPH # 0.7 (1.2-3.4); LYMPH % 29.1 % (22.0-35.0); MEAN CELL VOLUME 66.9 fl (80.0-105.0); MEAN CORPUSCULAR HEMOGLOBIN 22.8 pg (25.0-35.0); MONO # 0.2 (0.1-0.6); MONO % 7.8 % (1.0-6.0); RBC 5.62 10^6/uL (3.5-6.1); RED CELL DISTRIBUTION WIDTH 16.7 % (11.5-14.5)
[2017-08-14 01:03] LABS: ALB/GLOB RATIO 0.7 (1.1-1.8); ALBUMIN 2.8 g/dL (3.0-4.8); ALT/SGPT 50 U/L (7-56); AST/SGOT 60 U/L (17-59); BILIRUBIN,DIRECT 0.5 mg/dL (0.0-0.4); BLOOD UREA NITROGEN 13 mg/dL (7-21); CALCIUM 8.6 mg/dL (8.4-10.5); GFR AFRICAN-AMERICAN > 60; GFR NON-AFRICAN AMERICAN > 60; LIPASE 412 U/L (23-300)
[2017-08-14 01:04] LABS: PLATELET COUNT 45 10^3/uL (120.0-450.0); WHITE BLOOD COUNT 2.4 10^3/ul (4.5-11.0)
[2017-08-14 01:12] LABS: INR 1.47 (0.93-1.08); PROTHROMBIN TIME 16.9 SECONDS (9.4-12.5)
[2017-08-14 01:16] LABS: URINE BACTERIA SMALL (NEG); URINE EPITHELIAL CELLS 0 - 2 /hpf (0-5); URINE RBC TNTC /hpf (0-2)
[2017-08-14 01:33] LABS: VENOUS BLOOD GAS BASE EXCESS -0.8 mmol/L (0.0-2.0); VENOUS BLOOD GAS PO2 56 mm/Hg (30-55); VENOUS BLOOD PH 7.34 (7.32-7.43)
[2017-08-14 02:07] LABS: BARBITURATES, UR NEGATIVE (NEGATIVE); BENZODIAZEPINES, UR NEGATIVE (NEGATIVE); OPIATES, UR NEGATIVE (NEGATIVE); PHENCYCLIDINE, UR NEGATIVE (NEGATIVE)
[2017-08-14] MEDS ORDERED: cefTRIAXone 2 GM IN NS 2 GM/100 ML BAG IVPB STA (03:56)
[2017-08-14] MEDS ORDERED: Sodium Chloride 0.9% 1,000 ML IV SCH (04:30)
--- NOTE | 2017-08-14 05:54 | CP.PCM.HP ---
<Darrick Abbott - Last Filed: 08/14/17 05:48> History of Present Illness - History of Present Illness History of Present Illness: CC: Right Flank Pain Pt is a 42 yo M with PMH of cirrhosis 2/2 chronic hepatitis B, BPH, and lumbar herniated disc presents to [facility] [place] due to right flank pain. Pt states that he has had kidney stones for the past 6 months, but was generally asymptomatic. However , over the last couple of days right flank pain that radiates down the right groin has worsened. Pt also complains of associated dizziness, fatigue, and hematuria, but denies dysuria or discharge. Pt had an appointment to see Dr. Christensen later today, but pain was so severe that he went to the ED. Pt denies any recent weight change, travel, sick contacts, CP, SOB, n/v/d, abdominal pain, fever, chills, or HACKETT. PMH: cirrhosis 2/2 chronic hepatitis B, BPH, and lumbar herniated disc Surg: TIPS All: NKDA SH: Denied tobacco, EtOH, and illicit drug use FHx: Non-contributory Medications as per EMR Present on Admission - Present on Admission Any Indicators Present on Admission: No Review of Systems - Review of Systems Review of Systems: 12 point ROS reviewed and is negative other than what is stated in HPI. Past Patient History - Infectious Disease Hx of Infectious Diseases: None - Past Medical History & Family History Past Medical History?: Yes - Past Social History Smoking Status: Never Smoked - CARDIAC Hx Cardiac Disorders: No Hx Angina: No Hx Cardia Arrhythmia: No Hx Circulatory Problems: No Hx Congestive Heart Failure: No Hx Heart Murmur: No Hx Heart Transplant: No Hx Hypercholesterolemia: No Hx Hypertension: No Hx Internal Defibrillator: No Hx Mitral Valve Prolapse: No Hx Pacemaker: No Hx Peripheral Edema: No Hx Peripheral Vascular Disease: No - PULMONARY Hx Respiratory Disorders: No Hx Asthma: No Hx Bronchitis: No Hx Chronic Obstructive Pulmonary Disease (COPD): No Hx Emphysema: No Hx Pneumonia: No Hx Respiratory Aspiration: No Hx Respiratory Tract Infection: No Hx Sleep Apnea: No Hx Tuberculosis: No - NEUROLOGICAL Hx Neurological Disorder: No Hx Alzheimer's Disease: No HX Cerebrovascular Accident: No Hx Dementia: No Hx Dizziness: No Hx Meningitis: No Hx Migraine: No Hx Parkinson's Disease: No Hx Seizures: No Hx Transient Ischemic Attacks (TIA): No - HEENT Hx HEENT Problems: No Hx Blind: No Hx Cataracts: No Hx Deafness: No Hx Difficulty Chewing: No Hx Epistaxis: No Hx Glaucoma: No Hx Macular Degeneration: No - RENAL Hx Chronic Kidney Disease: Yes Hx Dialysis: No Hx Kidney Stones: Yes Hx Neurogenic Bladder: No Hx Pyelonephritis: No Hx Renal (Kidney) Cancer: No Hx Renal Failure: No - ENDOCRINE/METABOLIC Hx Endocrine Disorders: No Hx Adrenal Cancer: No Hx Diabetes Insipidus: No Hx Diabetes Mellitus Type 1: No Hx Diabetes Mellitus Type 2: No Hx Hyperthyroidism: No Hx Hypothyroidism: No Hx Systemic Lupus Erythematosus: No - HEMATOLOGICAL/ONCOLOGICAL Hx Blood Disorders: Yes Hx Hemophilia: No Hx Hepatitis B: Yes Hx Sickle Cell Disease: No - INTEGUMENTARY Hx Dermatological Problems: No Hx Basil Cell: No - MUSCULOSKELETAL/RHEUMATOLOGICAL Hx Musculoskeletal Disorders: No Hx Arthritis: No Hx Back Pain: No Hx Degenerative Joint Disease: No Hx Falls: No Hx Fractures: No Hx Gout: No Hx Herniated Disk: No Hx Myasthenia Gravis: No Hx Osteoarthritis: No Hx Osteomyelitis: No Hx Osteoporosis: No Hx Rhabdomyolysis: No Hx Spinal Stenosis: No Hx Unsteady Gait: No - GASTROINTESTINAL Hx Gastrointestinal Disorders: Yes Hx Colostomy: No Hx Crohn's Disease: No Hx Diverticulitis: No Hx Gall Bladder Disease: Yes Hx Gastroesophageal Reflux: No Hx Ileostomy: No Hx Liver Failure: Yes (liver fibrosis) Hx Pancreatitis: No HX Swallowing Problems: No Hx Ulcer: No Other/Comment: Liver Cirrhosis - GENITOURINARY/GYNECOLOGICAL Hx Genitourinary Disorders: Yes Hx Prostate Problems: Yes Other/Comment: Kidney Stones - PSYCHIATRIC Hx Psychophysiologic Disorder: No Hx Anxiety: No Hx Bipolar Disorder: No Hx Depression: No Hx Emotional Abuse: No Hx Hallucinations: No Hx Panic Symptoms: No Hx Paranoia: No Hx Post Traumatic Stress Disorder: No Hx Psychosis: No Hx Physical Abuse: No Hx Schizophrenia: No Hx Sexual Abuse: No - SURGICAL HISTORY Hx Surgeries: Yes Hx Cardiac Catheterization: No Hx Coronary Stent: No Other/Comment: Endoscopic Retrograde Cholangiopancreatography. Liver surgery - ANESTHESIA Hx Anesthesia: Yes Hx Anesthesia Reactions: No Hx Malignant Hyperthermia: No Meds Allergies/Adverse Reactions: Allergies Allergy/AdvReac Type Severity Reaction Status Date / Time No Known Allergies Allergy Verified 08/09/17 17:41 Physical Exam - Constitutional Appears: No Acute Distress - Head Exam Head Exam: NORMAL INSPECTION - Eye Exam Eye Exam: Normal appearance - ENT Exam ENT Exam: Mucous Membranes Moist - Neck Exam Neck exam: Positive for: Normal Inspection - Respiratory Exam Respiratory Exam: Clear to Auscultation Bilateral. absent: Rales, Rhonchi, Wheezes - Cardiovascular Exam Cardiovascular Exam: RRR, +S1, +S2. absent: Diastolic murmur, Gallop, Rubs, Systolic Murmur - GI/Abdominal Exam GI & Abdominal Exam: Soft. absent: Distended, Guarding, Rebound, Tenderness - Extremities Exam Extremities exam: Positive for: normal inspection - Back Exam Back exam: CVA tenderness (R). absent: CVA tenderness (L) - Neurological Exam Neurological exam: Alert, CN II-XII Intact, Oriented x3 - Psychiatric Exam Psychiatric exam: Normal Affect, Normal Mood - Skin Skin Exam: Dry, Intact, Normal Color, Warm Results - Vital Signs Recent Vital Signs: Last Vital Signs Temp 98.2 F 08/13/17 23:45 Pulse 65 08/14/17 03:10 Resp 18 08/14/17 03:10 BP 125/67 08/14/17 03:10 Pulse Ox 99 08/14/17 03:10 - Labs Result Diagrams: 08/14/17 00:20 08/14/17 00:20 Assessment & Plan - Assessment and Plan (Free Text) Assessment: 42 yo M with PMH of cirrhosis 2/2 chronic hepatitis B, BPH, and lumbar herniated disc admitted for UTI and Hydronephrosis 2/2 ureterolithiasis. Plan: 1. UTI - UA showed positive nitrate and trace leuk esterase - Levaquin 750 mg IVPB daily 2. Hydronephrosis 2/2 ureterolithiasis - CT abd/pelv shows 5 mm calculus is noted in the proximal to mid ureter causing mild right hydronephrosis, massively enlarged spleen, and liver demonstrates heterogenous appearance suspicious for hepatoparenchyma disease - NPO except medications - NS at 100 cc/hr - Flomax - Motrin and Toradol prn for pain - Urology consulted 3. Cirrhosis 2/2 Chronic Hepatitis B - Elevated LFT's - Cont Tenofovir, Rifaximin, ursodiol - Cont Coreg for esophageal varices ppx - One time dose of Lactulose for mildly elevated ammonia 4. Pancytopenia - Likely 2/2 chronic hepatitis B infection - No isolation at this time as ANC is 1466 - Iron studies ordered - HIV ordered - Cont to monitor 5. H/o BPH - Flomax GI/DVT PPx - Pepcid - SCDs Pt seen and discussed in detail with Dr. Velasquez. Shailesh Abbott, PGY1 <Ita Velasquez - Last Filed: 08/16/17 02:54> Results - Vital Signs Recent Vital Signs: Last Vital Signs Temp 99 F 08/14/17 08:13 Pulse 69 08/14/17 08:13 Resp 18 08/14/17 08:13 BP 116/62 08/14/17 10:08 Pulse Ox 99 08/14/17 08:13 - Labs Result Diagrams: 08/14/17 07:00 08/14/17 08:22 Labs: Laboratory Results - last 24 hr 08/14/17 08:22 HIV 1&2 Ag/Ab, 4th Gen Nonreactive Attending/Attestation - Attestation I have personally seen and examined this patient.: Yes I have fully participated in the care of the patient.: Yes I have reviewed all pertinent clinical information: Yes Notes (Text): 08/16/17 02:52 Patient wsa seen when he was in the ER. Agree with history, physical examination, assessment and plan.
[2017-08-14 06:02] VITALS: PULSE 69; BMI 22.3
[2017-08-14 08:14] VITALS: RESP 18; TEMP 99
[2017-08-14 08:26] LABS: HEMOGLOBIN 11.9 g/dL (14.0-18.0); MEAN CELL VOLUME 67.3 fl (80.0-105.0); MEAN CORPUSCULAR HGB CONC 32.7 g/dl (31.0-37.0); RBC 5.41 10^6/uL (3.5-6.1); RED CELL DISTRIBUTION WIDTH 16.7 % (11.5-14.5)
[2017-08-14 08:36] LABS: IRON 135 ug/dL (45-180)
--- NOTE | 2017-08-14 08:40 | CT ---
PROCEDURE: CT Abdomen and Pelvis without intravenous contrast HISTORY: Right Flank Pain COMPARISON: 08/09/2017 TECHNIQUE: Without contrast. Contrast Dose: Radiation dose: Total exam DLP = Total exam DLP = 259 mGy-cm. This CT exam was performed using one or more of the following dose reduction techniques: Automated exposure control, adjustment of the mA and/or kV according to patient size, and/or use of iterative reconstruction technique. FINDINGS: LOWER THORAX: Unremarkable. LIVER: The liver is cirrhotic. There is a TIPS shunt in place. There is a 13 x 18 mm hypodense lesion in the right lobe. This was noted previously GALLBLADDER AND BILE DUCTS: Unremarkable. PANCREAS: Unremarkable. No gross lesion or ductal dilatation. SPLEEN: There is splenomegaly. The spleen measures 15 cm AP x 7.5 cm wide ADRENALS: Unremarkable. No mass. KIDNEYS AND URETERS: There is a new right mid ureteral stone measuring 5 mm. There is a mild degree of hydronephrosis. The stone is best seen on axial image 92 series 3 and coronal image 47. VASCULATURE: Unremarkable. No aortic aneurysm. BOWEL: Unremarkable. No obstruction. No gross mural thickening. APPENDIX: Unremarkable. Normal appendix. PERITONEUM: Unremarkable. No free fluid. No free air. LYMPH NODES: Unremarkable. No enlarged lymph nodes. BLADDER: Unremarkable. REPRODUCTIVE: Unremarkable. BONES: No acute fracture. OTHER FINDINGS: The report concurs with the preliminary [facility] report IMPRESSION: 5 mm right mid ureteral stone with mild hydronephrosis.
[2017-08-14 08:43] LABS: PLATELET COUNT 35 10^3/uL (120.0-450.0); WHITE BLOOD COUNT 2.8 10^3/ul (4.5-11.0)
[2017-08-14 08:45] LABS: % IRON SATURATION 51 % (20-55); TOTAL IRON BINDING CAPACITY 264 ug/dL (261-462)
[2017-08-14 08:58] LABS: ALB/GLOB RATIO 0.7 (1.1-1.8); ALBUMIN 2.4 g/dL (3.0-4.8); ALT/SGPT 46 U/L (7-56); AST/SGOT 54 U/L (17-59); BLOOD UREA NITROGEN 15 mg/dL (7-21); GFR AFRICAN-AMERICAN > 60; GFR NON-AFRICAN AMERICAN > 60
[2017-08-14] MEDS ORDERED: levoFLOXacin 750 mg in D5W 150 ML BAG IVPB SCH (10:00)
[2017-08-14 10:21] VITALS: BP 116/62
--- NOTE | 2017-08-14 16:38 | CP.PCM.DIS ---
<Sheldon Pickard - Last Filed: 08/14/17 16:38> Provider - Provider Date of Admission: 08/14/17 04:05 Attending physician: Bao Nation MD Consults: Dr. Christensen: urology Time Spent in preparation of Discharge (in minutes): 45 Diagnosis - Discharge Diagnosis (1) Ureterolithiasis Status: Acute Hospital Course - Lab Results Lab Results: Most Recent Lab Values WBC 2.8 10^3/ul (4.5-11.0) L* 08/14/17 07:00 RBC 5.41 10^6/uL (3.5-6.1) 08/14/17 07:00 Hgb 11.9 g/dL (14.0-18.0) L 08/14/17 07:00 Hct 36.4 % (42.0-52.0) L 08/14/17 07:00 MCV 67.3 fl (80.0-105.0) L 08/14/17 07:00 MCH 22.0 pg (25.0-35.0) L 08/14/17 07:00 MCHC 32.7 g/dl (31.0-37.0) 08/14/17 07:00 RDW 16.7 % (11.5-14.5) H 08/14/17 07:00 Plt Count 35 10^3/uL (120.0-450.0) L* 08/14/17 07:00 Gran % 61.1 % (50.0-68.0) 08/14/17 00:20 Lymph % (Auto) 29.1 % (22.0-35.0) 08/14/17 00:20 Garza % (Auto) 7.8 % (1.0-6.0) H 08/14/17 00:20 Eos % (Auto) 1.6 % (1.5-5.0) 08/14/17 00:20 Baso % (Auto) 0.4 % (0.0-3.0) 08/14/17 00:20 Gran # 1.49 (1.4-6.5) 08/14/17 00:20 Lymph # (Auto) 0.7 (1.2-3.4) L 08/14/17 00:20 Garza # (Auto) 0.2 (0.1-0.6) 08/14/17 00:20 Eos # (Auto) 0.0 (0.0-0.7) 08/14/17 00:20 Baso # (Auto) 0.01 K/mm3 (0.0-2.0) 08/14/17 00:20 PT 16.9 SECONDS (9.4-12.5) H 08/14/17 00:20 INR 1.47 (0.93-1.08) H 08/14/17 00:20 pO2 56 mm/Hg (30-55) H 08/14/17 00:50 VBG pH 7.34 (7.32-7.43) 08/14/17 00:50 VBG pCO2 47.0 (40-60) 08/14/17 00:50 VBG HCO3 25.4 mmol/l (21-28) 08/14/17 00:50 VBG Total CO2 26.8 mmol.L (22-28) 08/14/17 00:50 VBG O2 Sat (Calc) 92.7 % (40-65) H 08/14/17 00:50 VBG Base Excess -0.8 mmol/L (0.0-2.0) L 08/14/17 00:50 VBG Potassium 3.9 mmol/L (3.6-5.2) 08/14/17 00:50 Sodium 142.0 mmol/L (132-148) 08/14/17 00:50 Chloride 111.0 mmol/L (98-107) H 08/14/17 00:50 Glucose 93 mg/dl (75-110) 08/14/17 00:50 Lactate 1.2 mmol/L (0.7-2.1) 08/14/17 00:50 FiO2 21.0 % 08/14/17 00:50 Sodium 141 mmol/L (132-148) 08/14/17 08:22 Potassium 4.2 mmol/L (3.6-5.0) 08/14/17 08:22 Chloride 112 mmol/L (98-107) H 08/14/17 08:22 Carbon Dioxide 27 mmol/L (21-33) 08/14/17 08:22 Anion Gap 7 (10-20) L 08/14/17 08:22 BUN 15 mg/dL (7-21) 08/14/17 08:22 Creatinine 0.9 mg/dl (0.8-1.5) 08/14/17 08:22 Est GFR ( Amer) > 60 08/14/17 08:22 Est GFR (Non-Af Amer) > 60 08/14/17 08:22 Random Glucose 84 mg/dL (70-110) 08/14/17 08:22 Calcium 8.0 mg/dL (8.4-10.5) L 08/14/17 08:22 Phosphorus 3.7 mg/dL (2.5-4.5) 08/14/17 08:22 Magnesium 1.9 mg/dL (1.7-2.2) 08/14/17 08:22 Iron 135 ug/dL (45-180) 08/14/17 08:22 TIBC 264 ug/dL (261-462) 08/14/17 08:22 % Saturation 51 % (20-55) 08/14/17 08:22 Ferritin 13.4 ng/mL 08/14/17 08:22 Total Bilirubin 1.7 mg/dL (0.2-1.3) H 08/14/17 08:22 Direct Bilirubin 0.5 mg/dL (0.0-0.4) H 08/14/17 00:20 AST 54 U/L (17-59) 08/14/17 08:22 ALT 46 U/L (7-56) 08/14/17 08:22 Alkaline Phosphatase 164 U/L (38-126) H D 08/14/17 08:22 Ammonia 35 umol/L (9-33) H 08/14/17 00:50 Total Protein 6.0 g/dL (5.8-8.3) 08/14/17 08:22 Albumin 2.4 g/dL (3.0-4.8) L 08/14/17 08:22 Globulin 3.6 gm/dL 08/14/17 08:22 Albumin/Globulin Ratio 0.7 (1.1-1.8) L 08/14/17 08:22 Lipase 412 U/L (23-300) H 08/14/17 00:20 Venous Blood Potassium 3.9 mmol/L (3.6-5.2) 04/03/18 00:50 Urine Color Red (YELLOW) 08/14/17 00:15 Urine Appearance Cloudy (CLEAR) 08/14/17 00:15 Urine pH 8.5 (4.7-8.0) 08/14/17 00:15 Ur Specific [place] 1.020 (1.005-1.035) 08/14/17 00:15 Urine Protein 100 mg/dL (<30 mg/dL) H 08/14/17 00:15 Urine Glucose (UA) Negative mg/dL (NEGATIVE) 08/14/17 00:15 Urine Ketones Trace mg/dL (NEGATIVE) H 08/14/17 00:15 Urine Blood Large (NEGATIVE) H 08/14/17 00:15 Urine Nitrate Positive (NEGATIVE) H 08/14/17 00:15 Urine Bilirubin Negative (NEGATIVE) 08/14/17 00:15 Urine Urobilinogen 1.0 E.U./dL (<1 E.U./dL) H 08/14/17 00:15 Ur Leukocyte Esterase Trace Barry/uL (NEGATIVE) H 08/14/17 00:15 Urine RBC Tntc /hpf (0-2) 08/14/17 00:15 Urine WBC 1 - 3 /hpf (0-6) 08/14/17 00:15 Ur Epithelial Cells 0 - 2 /hpf (0-5) 08/14/17 00:15 Urine Bacteria Small (NEG) 08/14/17 00:15 Urine Opiates Screen Negative (NEGATIVE) 08/14/17 00:50 Urine Methadone Screen Negative (NEGATIVE) 08/14/17 00:50 Ur Barbiturates Screen Negative (NEGATIVE) 08/14/17 00:50 Ur Phencyclidine Scrn Negative (NEGATIVE) 08/14/17 00:50 Ur Amphetamines Screen Negative (NEGATIVE) 08/14/17 00:50 U Benzodiazepines Scrn Negative (NEGATIVE) 08/14/17 00:50 U Oth Cocaine Metabols Negative (NEGATIVE) 08/14/17 00:50 U Cannabinoids Screen Negative (NEGATIVE) 08/14/17 00:50 Alcohol, Quantitative < 10 mg/dL (0-10) 08/14/17 00:20 Blood Type O POSITIVE 08/14/17 10:15 Blood Type Confirm O POSITIVE 08/14/17 11:00 Antibody Screen Negative 08/14/17 10:15 Crossmatch See Detail 08/14/17 10:15 BBK History Checked No verified bt 08/14/17 10:15 - Hospital Course Hospital Course: HPI on admission: Pt is a 42 yo M with PMH of 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 Pt states that he has had kidney stones for the past 6 months, but was generally asymptomatic. However , over the last couple of days right flank pain that radiates down the right groin has worsened. Pt also complains of associated dizziness, fatigue, and hematuria, but denies dysuria or discharge. Pt had an appointment to see Dr. Christensen later today, but pain was so severe that he went to the ED. Pt denies any recent weight change, travel, sick contacts, CP, SOB, n/v/d, abdominal pain, fever, chills, or HACKETT. Patient was found to have pancytopenia 2/2 chronic Hep B while here, as well as hydronephrosis 2/2 stone. Patient was initially given an NPO diet but was then advanced and was able to tolerate a regular diet. While patient was here, patient's pain resolved, and he was seen by Dr. Christensen, who said that patient is stable and should follow up with him outpatient. Patient sees a GI specialist, Charles Wright - GI/Hepatology at [facility], and will follow up with him for his Hep B. CT abd/pelv shows 5 mm calculus is noted in the proximal to mid ureter causing mild right hydronephrosis, massively enlarged spleen, and liver demonstrates heterogenous appearance suspicious for hepatoparenchyma disease. Patient was found to be stable and discharged home on 8 tablets of percocet Discharge Exam - Head Exam Head Exam: NORMAL INSPECTION - Eye Exam Eye Exam: EOMI, Normal appearance, PERRL Pupil Exam: NORMAL ACCOMODATION, PERRL - Respiratory Exam Respiratory Exam: Clear to PA & Lateral, NORMAL BREATHING PATTERN, UNREMARKABLE - Cardiovascular Exam Cardiovascular Exam: REGULAR RHYTHM - GI/Abdominal Exam GI & Abdominal Exam: Normal Bowel Sounds, Unremarkable - Neurological Exam Neurological exam: Alert, CN II-XII Intact, Normal Gait, Oriented x3, Reflexes Normal - Psychiatric Exam Psychiatric exam: Normal Affect, Normal Mood - Skin Skin Exam: Dry, Intact, Normal Color, Warm Discharge Plan - Follow Up Plan Condition: GOOD Disposition: HOME/ ROUTINE Instructions: Cholecystitis (DC), Kidney Stones (DC), Renal Colic (DC), Myelodysplastic Syndromes (DC), Acute Abdominal Pain (DC) Additional Instructions: Please follow up with your GI doctor outpatient Please follow up with Dr. Christensen in 1-2 days outpatient Should your symptoms persist or worsen, please immediately return to the ED Referrals: Harvey Nguyen MD [Staff Provider] - Connor Christensen MD [Staff Provider] - <Sandra Zhang - Last Filed: 08/15/17 09:43> Provider - Provider Date of Admission: 08/14/17 04:05 Attending physician: Bao Nation MD Hospital Course - Lab Results Lab Results: Most Recent Lab Values WBC 2.8 10^3/ul (4.5-11.0) L* 08/14/17 07:00 RBC 5.41 10^6/uL (3.5-6.1) 08/14/17 07:00 Hgb 11.9 g/dL (14.0-18.0) L 08/14/17 07:00 Hct 36.4 % (42.0-52.0) L 08/14/17 07:00 MCV 67.3 fl (80.0-105.0) L 08/14/17 07:00 MCH 22.0 pg (25.0-35.0) L 08/14/17 07:00 MCHC 32.7 g/dl (31.0-37.0) 08/14/17 07:00 RDW 16.7 % (11.5-14.5) H 08/14/17 07:00 Plt Count 35 10^3/uL (120.0-450.0) L* 08/14/17 07:00 Gran % 61.1 % (50.0-68.0) 08/14/17 00:20 Lymph % (Auto) 29.1 % (22.0-35.0) 08/14/17 00:20 Garza % (Auto) 7.8 % (1.0-6.0) H 08/14/17 00:20 Eos % (Auto) 1.6 % (1.5-5.0) 08/14/17 00:20 Baso % (Auto) 0.4 % (0.0-3.0) 08/14/17 00:20 Gran # 1.49 (1.4-6.5) 08/14/17 00:20 Lymph # (Auto) 0.7 (1.2-3.4) L 08/14/17 00:20 Garza # (Auto) 0.2 (0.1-0.6) 08/14/17 00:20 Eos # (Auto) 0.0 (0.0-0.7) 08/14/17 00:20 Baso # (Auto) 0.01 K/mm3 (0.0-2.0) 08/14/17 00:20 PT 16.9 SECONDS (9.4-12.5) H 08/14/17 00:20 INR 1.47 (0.93-1.08) H 08/14/17 00:20 pO2 56 mm/Hg (30-55) H 08/14/17 00:50 VBG pH 7.34 (7.32-7.43) 08/14/17 00:50 VBG pCO2 47.0 (40-60) 08/14/17 00:50 VBG HCO3 25.4 mmol/l (21-28) 08/14/17 00:50 VBG Total CO2 26.8 mmol.L (22-28) 08/14/17 00:50 VBG O2 Sat (Calc) 92.7 % (40-65) H 08/14/17 00:50 VBG Base Excess -0.8 mmol/L (0.0-2.0) L 08/14/17 00:50 VBG Potassium 3.9 mmol/L (3.6-5.2) 08/14/17 00:50 Sodium 142.0 mmol/L (132-148) 08/14/17 00:50 Chloride 111.0 mmol/L (98-107) H 08/14/17 00:50 Glucose 93 mg/dl (75-110) 08/14/17 00:50 Lactate 1.2 mmol/L (0.7-2.1) 08/14/17 00:50 FiO2 21.0 % 08/14/17 00:50 Sodium 141 mmol/L (132-148) 08/14/17 08:22 Potassium 4.2 mmol/L (3.6-5.0) 08/14/17 08:22 Chloride 112 mmol/L (98-107) H 08/14/17 08:22 Carbon Dioxide 27 mmol/L (21-33) 08/14/17 08:22 Anion Gap 7 (10-20) L 08/14/17 08:22 BUN 15 mg/dL (7-21) 08/14/17 08:22 Creatinine 0.9 mg/dl (0.8-1.5) 08/14/17 08:22 Est GFR ( Amer) > 60 08/14/17 08:22 Est GFR (Non-Af Amer) > 60 08/14/17 08:22 Random Glucose 84 mg/dL (70-110) 08/14/17 08:22 Calcium 8.0 mg/dL (8.4-10.5) L 08/14/17 08:22 Phosphorus 3.7 mg/dL (2.5-4.5) 08/14/17 08:22 Magnesium 1.9 mg/dL (1.7-2.2) 08/14/17 08:22 Iron 135 ug/dL (45-180) 08/14/17 08:22 TIBC 264 ug/dL (261-462) 08/14/17 08:22 % Saturation 51 % (20-55) 08/14/17 08:22 Ferritin 13.4 ng/mL 08/14/17 08:22 Total Bilirubin 1.7 mg/dL (0.2-1.3) H 08/14/17 08:22 Direct Bilirubin 0.5 mg/dL (0.0-0.4) H 08/14/17 00:20 AST 54 U/L (17-59) 08/14/17 08:22 ALT 46 U/L (7-56) 08/14/17 08:22 Alkaline Phosphatase 164 U/L (38-126) H D 08/14/17 08:22 Ammonia 35 umol/L (9-33) H 08/14/17 00:50 Total Protein 6.0 g/dL (5.8-8.3) 08/14/17 08:22 Albumin 2.4 g/dL (3.0-4.8) L 08/14/17 08:22 Globulin 3.6 gm/dL 08/14/17 08:22 Albumin/Globulin Ratio 0.7 (1.1-1.8) L 08/14/17 08:22 Lipase 412 U/L (23-300) H 08/14/17 00:20 Venous Blood Potassium 3.9 mmol/L (3.6-5.2) 08/14/17 00:50 Urine Color Red (YELLOW) 08/14/17 00:15 Urine Appearance Cloudy (CLEAR) 08/14/17 00:15 Urine pH 8.5 (4.7-8.0) 08/14/17 00:15 Ur Specific [place] 1.020 (1.005-1.035) 08/14/17 00:15 Urine Protein 100 mg/dL (<30 mg/dL) H 08/14/17 00:15 Urine Glucose (UA) Negative mg/dL (NEGATIVE) 08/14/17 00:15 Urine Ketones Trace mg/dL (NEGATIVE) H 08/14/17 00:15 Urine Blood Large (NEGATIVE) H 08/14/17 00:15 Urine Nitrate Positive (NEGATIVE) H 08/14/17 00:15 Urine Bilirubin Negative (NEGATIVE) 08/14/17 00:15 Urine Urobilinogen 1.0 E.U./dL (<1 E.U./dL) H 08/14/17 00:15 Ur Leukocyte Esterase Trace Barry/uL (NEGATIVE) H 08/14/17 00:15 Urine RBC Tntc /hpf (0-2) 08/14/17 00:15 Urine WBC 1 - 3 /hpf (0-6) 08/14/17 00:15 Ur Epithelial Cells 0 - 2 /hpf (0-5) 08/14/17 00:15 Urine Bacteria Small (NEG) 08/14/17 00:15 Urine Opiates Screen Negative (NEGATIVE) 08/14/17 00:50 Urine Methadone Screen Negative (NEGATIVE) 08/14/17 00:50 Ur Barbiturates Screen Negative (NEGATIVE) 08/14/17 00:50 Ur Phencyclidine Scrn Negative (NEGATIVE) 08/14/17 00:50 Ur Amphetamines Screen Negative (NEGATIVE) 08/14/17 00:50 U Benzodiazepines Scrn Negative (NEGATIVE) 08/14/17 00:50 U Oth Cocaine Metabols Negative (NEGATIVE) 08/14/17 00:50 U Cannabinoids Screen Negative (NEGATIVE) 08/14/17 00:50 Alcohol, Quantitative < 10 mg/dL (0-10) 08/14/17 00:20 Blood Type O POSITIVE 08/14/17 10:15 Blood Type Confirm O POSITIVE 08/14/17 11:00 Antibody Screen Negative 08/14/17 10:15 Crossmatch See Detail 08/14/17 10:15 BBK History Checked No verified bt 08/14/17 10:15 Attending/Attestation - Attestation I have personally seen and examined this patient.: Yes I have fully participated in the care of the patient.: Yes I have reviewed all pertinent clinical information, including history, physical exam and plan: Yes Notes (Text): 08/15/17 09:39 attending note; Patient seen and examined with resident. patient is a 42-year-old male with a history of kidney stone, ? BPH,chronic hepatitis B, pancytopenia is admitted with right renal stone. CT showed 5 mm stone with minimal hydro-nephrosis. Patient was admitted and treated with IV fluids, pain medication and Flomax. Patient is clinically stable. Denies any pain. No fevers or chills. Pancytopenia; chronic. No bleeding. Currently on treatment with [facility] hepatology Department. History of TIPS over 6 years ago. Case discussed with Dr. Christensen in detail. Patient will be discharged home today. He has follow-up appointment with Dr. Christensen urology tomorrow. Further plan as per urology.
--- NOTE | 2017-08-15 08:37 | CON ---
DATE: 08/14/2017 GENITOURINARY CONSULTATION CHIEF COMPLAINT: Right flank pain. HISTORY OF PRESENT ILLNESS: This is a 42-year-old male with a history of cirrhosis secondary to chronic hepatitis B and BPH with lower urinary tract symptoms. Patient states he has a history of kidney stones in the past. Over the past couple of days, he has developed some right flank pain, which has gotten somewhat worse. Pain was radiating down to his right groin. He denies any nausea or vomiting. Denies any fever or chills, but does complain of some dizziness, fatigue, and gross hematuria. The patient had an appointment to see me in the office. He has been on Flomax for his voiding issues with improvement until this acute event happened. Patient was found to have a mid ureteral calculus and he was admitted for evaluation and treatment. consultation was called regarding the above. PAST MEDICAL HISTORY: Significant for cirrhosis, hepatitis B, BPH, herniated disks. PAST SURGICAL HISTORY: TIPS procedure. MEDICATIONS: Currently include Actigall, Coreg, Flomax, Levaquin, Motrin, Pepcid, Toradol, Viread, and Xifaxan. ALLERGIES: NO KNOWN DRUG ALLERGIES. FAMILY HISTORY: Noncontributory. SOCIAL HISTORY: Denies smoking or EtOH use. REVIEW OF SYSTEMS: He feels somewhat better than on admission with less flank pain. Does complain of some weakness, and dizziness has improved although still present. Flank pain is mild stabbing in nature, intermittent, but improving. Denies nausea or vomiting. Denies diarrhea or constipation. Does complain of some urinary frequency with some on and off light hematuria. No fever or chills. No extremity weakness or numbness. Other systems are negative. PHYSICAL EXAMINATION: GENERAL: Patient is awake and alert, answering questions. Family is present as his family is acting as an soft tile setter. He is in no acute distress. NECK: Supple. He has no adenopathy. CHEST: Shows a normal inspiratory effort. CARDIAC: Shows positive S1, S2. There is no edema. VITAL SIGNS: He has been afebrile, pulse of 69, BP 117/60, respirations 18. ABDOMEN: Soft, nontender, nondistended. There is no CVA tenderness. There is no noted hepatosplenomegaly which is palpable. GENITOURINARY: Phallus is normal. Scrotum is normal. Testes bilaterally descended, nontender, no masses. Epididymis are normal. EXTREMITIES: No cyanosis or edema. LABORATORY DATA: WBC count is low at 2.8, platelet count 35, hematocrit 36.4. Chemistry shows a GFR greater than 60, alkaline phosphatase elevated, bilirubin elevated, and lipase elevated; albumin is low. RADIOLOGIC DATA: Patient had a CT scan of the abdomen and pelvis, which showed there was a mid right ureteral stone measuring 5 mm with mild hydronephrosis. Bladder was unremarkable. The liver is cirrhotic with a TIPS shunt in place. IMPRESSION AND PLAN: This is a 42-year-old male with a history of cirrhosis, chronic hepatitis B with a 5-mm ureteral calculus. Urologically, patient should be able to pass this stone on his own with fluids and Flomax. If the patient's pain continues to be severe, we can consider an elective ureteroscopy with laser lithotripsy and possible stent placement. More concerning at this time is the patient's extremely low platelet count as well as his low WBC count. Plan would be for a Hematology/Oncology consultation, possibly platelet and blood transfusions as needed at this time. Certainly, I would not plan invasive procedure on the patient at this time. He is at high risk for bleeding as well as high risk for infection given his low blood counts. If the patient's pain can be managed, patient can be discharged from a urologic standpoint with outpatient followup. I think it would be better for him to pass a stone spontaneously than have an invasive procedure at this time. However, he should be medically managed to optimize his blood counts incase an invasive procedure is needed in the near future. Also, patient has been receiving Toradol as well as other nonsteroidal anti-inflammatories for pain. I am not sure those are the best choice given his extremely low platelet count as there is platelet inhibition from the nonsteroidals. Unclear if other pain medicine will affect his liver function and cirrhosis. However, if the patient's pain can be managed, he can be scheduled for an elective outpatient procedure if the stone does not pass in a few days' time. Thank you for allowing me to participate the care of this patient. We will follow him with you. Connor Christensen MD
== END 2017-08-14 17:12 | disposition home or self-care (01) | DRG 694 ==
LOC: ED 23:21 → ERH 08-14 04:05 → 5RNO 08-14 05:02 → ERH 08-14 05:02
PROVIDERS: ADMIT Internal Medicine; ATTEND Internal Medicine
DX: N13.2 Hydronephrosis with renal and ureteral calculous obstruction (principal); B18.1 Chronic viral hepatitis B without delta-agent; D61.818 Other pancytopenia; N13.8 Other obstructive and reflux uropathy; N40.1 Benign prostatic hyperplasia with lower urinary tract symptoms; K74.69 Other cirrhosis of liver; M51.26 Other intervertebral disc displacement, lumbar region

== ENCOUNTER 2017-08-17 11:49 | Emergency (ER) | payer MEDICARE ==
[2017-08-17 11:49] VITALS: BMI 22.3
[2017-08-17 12:05] VITALS: TEMP 98.5; O2SAT 99
[2017-08-17] MEDS ORDERED: Lidocaine 100 MG in Sodium Chloride 0.9% 100 ML IV STA (12:20)
--- NOTE | 2017-08-17 12:23 | ED PDOC ---
Arrival/HPI - General Chief Complaint: Abdominal Pain Time Seen by Provider: 08/17/17 12:02 Historian: Patient - History of Present Illness Narrative History of Present Illness (Text): 08/17/17 12:10 42 year old male, whose PMH includes liver cirrhosis, and kidney stones, who presents to the emergency department complaining of right sided lower back pain that radiates to his abdomen. Patient reports the stone has not been able to pass and was diagnosed with it the prior visit to the emergency department. He notes being given Oxycodone with no significant relief and having an appointment with his food counselor next week. Patient denies fever, frequency, hematuria, nausea, vomiting, diarrhea, or other complaints. C[employer] Concrete Finishing Supervisor: Dr. Charles Wright Prior visit admission Urologist: Dr. Christensen Time/Duration: < week Symptom Onset: Gradual Symptom Course: Unchanged Context: Home Past Medical History - Provider Review Nursing Documentation Reviewed: Yes - Infectious Disease Hx of Infectious Diseases: None - Cardiac Hx Cardiac Disorders: No - Pulmonary Hx Respiratory Disorders: No - Neurological Hx Neurological Disorder: No - HEENT Hx HEENT Disorder: No - Renal Hx Renal Disorder: Yes Hx Kidney Stones: Yes - Endocrine/Metabolic Hx Endocrine Disorders: No - Hematological/Oncological Hx Blood Disorders: Yes Hx Hepatitis B: Yes - Integumentary Hx Dermatological Disorder: No Hx Basal Cell Carcinoma: No - Musculoskeletal/Rheumatological Hx Musculoskeletal Disorders: No - Gastrointestinal Hx Gastrointestinal Disorders: Yes Hx Diverticulitis: Yes Hx Gall Bladder Disease: Yes Hx Liver Failure: Yes (liver fibrosis) - Genitourinary/Gynecological Hx Prostate Problems: Yes - Psychiatric Hx Psychophysiologic Disorder: No Hx Substance Use: No - Surgical History Other/Comment: Endoscopic Retrograde Cholangiopancreatography. Liver surgery - Anesthesia Hx Anesthesia: Yes Hx Anesthesia Reactions: No Hx Malignant Hyperthermia: No - Suicidal Assessment Feels Threatened In Home Enviroment: No Family/Social History - Physician Review Nursing Documentation Reviewed: Yes Family/Social History: Unknown Family HX Smoking Status: Never Smoked Hx Alcohol Use: No Hx Substance Use: No Allergies/Home Meds Allergies/Adverse Reactions: Allergies No Known Allergies Allergy (Verified 08/09/17 17:41) Home Medications: Home Meds Medication Instructions Recorded Confirmed Carvedilol [Coreg] 1 tab PO BID 12/25/15 08/17/17 Tenofovir [Viread] 300 mg PO DAILY 12/25/15 08/17/17 Ursodiol 1 tab PO BID 12/25/15 08/17/17 Review of Systems - Review of Systems Constitutional: absent: Fevers Respiratory: absent: SOB Cardiovascular: absent: Chest Pain Gastrointestinal: Abdominal Pain Genitourinary Male: absent: Frequency, Hematuria Musculoskeletal: Back Pain (right lower back pain radiates to abdomen) Skin: absent: Rash Neurological: absent: Headache Endocrine: absent: Diaphoresis Physical Exam Vital Signs Reviewed: Yes Vital Signs Temp Pulse Resp BP Pulse Ox 08/17/17 15:14 64 14 110/67 99 08/17/17 11:59 98.5 F 62 16 127/68 99 Temperature: Afebrile Blood Pressure: Normal Pulse: Regular Respiratory Rate: Normal Appearance: Positive for: Well-Appearing, Non-Toxic, Comfortable Pain Distress: None Mental Status: Positive for: Alert and Oriented X 3 - Systems Exam Head: Present: Atraumatic, Normocephalic Pupils: Present: PERRL Extroacular Muscles: Present: EOMI Conjunctiva: Present: Normal Mouth: Present: Moist Mucous Membranes Respiratory/Chest: Present: Clear to Auscultation, Good Air Exchange. No: Respiratory Distress, Accessory Muscle Use, Wheezes, Rales, Retracting, Rhonchi Cardiovascular: Present: Regular Rate and Rhythm, Normal S1, S2. No: Murmurs Abdomen: Present: Tenderness (right sided tenderness), Normal Bowel Sounds. No : Distention, Peritoneal Signs, Rebound, Guarding Back: Present: CVA Tenderness (right sided CVA tenderness). No: Paraspinal Tenderness, Pain with Leg Raise Upper Extremity: Present: Normal Inspection. No: Cyanosis, Edema Lower Extremity: Present: Normal Inspection. No: Edema Neurological: Present: GCS=15, CN II-XII Intact, Speech Normal, Motor Func Grossly Intact, Normal Sensory Function, Gait Normal Skin: Present: Warm, Dry, Normal Color. No: Rashes Psychiatric: Present: Alert, Oriented x 3, Normal Insight, Normal Concentration Medical Decision Making ED Course and Treatment: 08/17/17 Impression: 42 year old male with right abdominal tenderness and right sided CVA back tenderness complaining of right sided lower back pain radiating to abdomen. Differential Diagnosis included but are not limited to: Kidney stones Plan: -- CT abdomen and pelvis -- Labs -- Urinalysis -- Flomax, Lidocaine, Toradol, Tylenol, and Zofran -- Reassess and disposition Progress Notes: 08/17/17 13:00 CT abdomen and pelvis: Creator : Tae Lucas MD COMPARISON: 08/14/2017 CT FINDINGS: LOWER THORAX: Unremarkable. LIVER: There is a TIPS stent in place GALLBLADDER AND BILE DUCTS: Unremarkable. PANCREAS: Unremarkable. No gross lesion or ductal dilatation. SPLEEN: Severe splenomegaly ADRENALS: Unremarkable. No mass. KIDNEYS AND URETERS: There is a 5 mm stone in the right mid ureter. There is mild hydronephrosis. Small nonobstructing stones are also seen in the right kidney.The left kidney is unremarkable VASCULATURE: Unremarkable. No aortic aneurysm. BOWEL: Unremarkable. No obstruction. No gross mural thickening. APPENDIX: Unremarkable. Normal appendix. PERITONEUM: Unremarkable. No free fluid. No free air. LYMPH NODES: Unremarkable. No enlarged lymph nodes. BLADDER: Unremarkable. REPRODUCTIVE: Unremarkable. BONES: No acute fracture. OTHER FINDINGS: None. IMPRESSION: There is no change in the position or appearance of the 5 mm stone in the right mid ureter with mild hydronephrosis 08/17/17 15:12 Patient has significantly improved. He no longer has pain. He has not passed the stone yet. Case was discussed with Dr. Christensen who recommends patient follow up with him as an outpatient next week. He recommends pain control and to f/u with a vice president payment so that they can clear him for a cystoscopy. Patient was given the information for Dr. Contreras to call to make an appointment. He will also f/u with Dr. Christensen. - Lab Interpretations Lab Results: 08/17/17 12:29 08/17/17 12:29 Lab Results 08/17/17 12:29: Sodium 142, Potassium 4.4, Chloride 106, Carbon Dioxide 30, Anion Gap 10, BUN 10, Creatinine 0.8, Est GFR ( Amer) > 60, Est GFR (Non- Af Amer) > 60, Random Glucose 99, Calcium 8.6, Total Bilirubin 1.1, AST 60 H, ALT 42, Alkaline Phosphatase 223 H D, Total Protein 6.5, Albumin 2.6 L, Globulin 3.8, Albumin/Globulin Ratio 0.7 L 08/17/17 12:29: Urine Color Yellow, Urine Appearance Clear, Urine pH 7.5, Ur Specific [place] 1.015, Urine Protein Negative, Urine Glucose (UA) Negative, Urine Ketones Negative, Urine Blood Large H, Urine Nitrate Negative, Urine Bilirubin Negative, Urine Urobilinogen 1.0 H, Ur Leukocyte Esterase Negative, Urine RBC 25 - 30, Urine WBC 0 - 2, Ur Epithelial Cells None, Urine Bacteria Mod 08/17/17 12:29: WBC 2.1 L* D, RBC 5.42, Hgb 12.3 L, Hct 36.5 L, MCV 67.3 L, MCH 22.7 L, MCHC 33.7, RDW 16.6 H, Plt Count 28 L*, Gran % 52.8, Lymph % (Auto) 31.6 , [place] % (Auto) 13.6 H, Eos % (Auto) 1.5, Baso % (Auto) 0.5, Gran # 1.09 L, Lymph # (Auto) 0.7 L, [place] # (Auto) 0.3, Eos # (Auto) 0.0, Baso # (Auto) 0.01 I have reviewed the lab results: Yes - RAD Interpretation Radiology Orders: 08/17/17 12:19 ABD & PELVIS W/O PO OR IV CONT [CT] Stat Cross Tie Maker: Radiologist - Medication Orders Current Medication Orders: Discontinued Medications Lidocaine 100 mg/ Sodium (Chloride) 105 mls @ 630 mls/hr IV STAT STA Stop: 08/17/17 12:21 Last Admin: 08/17/17 13:24 Dose: 630 mls/hr eMAR Start Stop Document 08/17/17 13:24 SS (Rec: 08/17/17 13:27 [id number] Intravenous Solution Start Date 08/17/17 Start Time 13:24 End Date 08/17/17 End time 13:34 Total Infusion Time 10 Ketorolac Tromethamine (Toradol) 30 mg IVP STAT STA Stop: 08/17/17 12:21 Last Admin: 08/17/17 12:42 Dose: 30 mg MAR Pain Assessment Document 08/17/17 12:42 SS (Rec: 08/17/17 12:42 [facility] [id number][facility] Pain Reassessment Is this a pain reassessment? No Sleep Is patient sleeping during reassessment? No Presence of Pain Presence of Pain Yes Pain Scale Used Pain Scale Used Numeric Location Left, Right or Bilateral Right Pain Location Body Site Back Description Intensity of Pain at present 6 IVP Administration Document 08/17/17 12:42 SS (Rec: 08/17/17 12:42 SS [facility] [id number]) Charges for Administration # of IVP Administrations 1 Ondansetron HCl (Zofran Inj) 4 mg IVP STAT STA Stop: 08/17/17 12:16 Last Admin: 08/17/17 12:41 Dose: 4 mg IVP Administration Document 08/17/17 12:41 SS (Rec: 08/17/17 12:42 SS [facility] [id number]) Charges for Administration # of IVP Administrations 1 Tamsulosin HCl (Flomax) 0.4 mg PO STAT STA Stop: 08/17/17 12:21 Last Admin: 08/17/17 12:42 Dose: 0.4 mg - Scribe Statement The provider has reviewed the documentation as recorded by the Scribe Laura Alan Provider Scribe Attestation: All medical record entries made by the Scribe were at my direction and personally dictated by me. I have reviewed the chart and agree that the record accurately reflects my personal performance of the history, physical exam, medical decision making, and the department course for this patient. I have also personally directed, reviewed, and agree with the discharge instructions and disposition. Disposition/Present on Arrival - Present on Arrival Any Indicators Present on Arrival: No History of DVT/PE: No History of Uncontrolled Diabetes: No Urinary Catheter: No History of Decub. Ulcer: No History Surgical Site Infection Following: None - Disposition Have Diagnosis and Disposition been Completed?: Yes Diagnosis: Renal colic on right side Disposition: HOME/ ROUTINE Disposition Time: 15:24 Patient Plan: Discharge Condition: IMPROVED Discharge Instructions (ExitCare): Renal Colic, Bleeding Precautions Print Language: SYRIAN Additional Instructions: Tejinder, thank you for letting us take care of you today. Your provider was Dr. Murdock. You were treated for Kidney Stones. The emergency medical care you received today was directed at your acute symptoms. If you were prescribed any medication, please fill it and take as directed. It may take several days for your symptoms to resolve. Return to the Emergency Department if your symptoms worsen, do not improve, or if you have any other problems. Please contact your doctor or call one of the physicians/clinics you have been referred to that are listed on the Patient Visit Information form that is included in your discharge packet. Bring any paperwork you were given at discharge with you along with any medications you are taking to your follow up visit. Our treatment cannot replace ongoing medical care by a primary care provider (PCP) outside of the emergency department. [facility] [place] team to be part of your care today. If you had an X-Ray or CT scan: A Radiologist will review the ED reading if any change in treatment is needed we will contact you. If you had a blood, urine, or wound culture: It will take several days for the results, if any change in treatment is needed we will contact you. If you had an STI test: It will take 48 hours for the results. Please call after 1 week if you have not heard back. Prescriptions: oxyCODONE/Acetaminophen [Percocet 5/325 mg Tab] 1 ea PO Q6 PRN #20 tab PRN Reason: Pain, Moderate (4-7) Tamsulosin [Flomax] 0.4 mg PO DAILY #20 cap Referrals: Josue Morfin MD [Primary Care Provider] - Follow up with primary Anne Contreras MD [Staff Provider] - Follow up with primary Connor Christensen MD [Staff Provider] - Follow up with primary Forms: [employer] ([place]ian), WORK NOTE, [employer] ([place])
[2017-08-17 12:45] LABS: PH,URINE 7.5 (4.7-8.0); URINE BILIRUBIN NEGATIVE (NEGATIVE); URINE BLOOD LARGE (NEGATIVE); URINE GLUCOSE (UA) NEGATIVE (NEGATIVE); URINE LEUKOCYTE ESTERASE NEGATIVE Leu/uL (NEGATIVE); URINE PROTEIN NEGATIVE mg/dL (<30 mg/dL)
[2017-08-17 12:46] LABS: BASO # 0.01 K/mm3 (0.0-2.0); BASO % 0.5 % (0.0-3.0); EOS % 1.5 % (1.5-5.0); GRAN # 1.09 (1.4-6.5); GRAN % 52.8 % (50.0-68.0); HEMOGLOBIN 12.3 g/dL (14.0-18.0); LYMPH # 0.7 (1.2-3.4); LYMPH % 31.6 % (22.0-35.0); MEAN CELL VOLUME 67.3 fl (80.0-105.0); MEAN CORPUSCULAR HEMOGLOBIN 22.7 pg (25.0-35.0); MEAN CORPUSCULAR HGB CONC 33.7 g/dl (31.0-37.0); MONO # 0.3 (0.1-0.6); MONO % 13.6 % (1.0-6.0); RBC 5.42 10^6/uL (3.5-6.1); RED CELL DISTRIBUTION WIDTH 16.6 % (11.5-14.5); URINE APPEARANCE CLEAR (CLEAR); URINE COLOR YELLOW (YELLOW)
[2017-08-17 12:48] LABS: WHITE BLOOD COUNT 2.1 10^3/ul (4.5-11.0)
[2017-08-17 12:49] LABS: PLATELET COUNT 28 10^3/uL (120.0-450.0)
[2017-08-17 12:51] LABS: URINE BACTERIA MOD (NEG); URINE RBC 25 - 30 /hpf (0-2); URINE WBC 0 - 2 /hpf (0-6)
[2017-08-17 12:57] LABS: ALB/GLOB RATIO 0.7 (1.1-1.8); ALBUMIN 2.6 g/dL (3.0-4.8); ALT/SGPT 42 U/L (7-56); AST/SGOT 60 U/L (17-59); BLOOD UREA NITROGEN 10 mg/dL (7-21); CALCIUM 8.6 mg/dL (8.4-10.5); GFR AFRICAN-AMERICAN > 60; GFR NON-AFRICAN AMERICAN > 60
--- NOTE | 2017-08-17 13:02 | CT ---
PROCEDURE: CT Abdomen and Pelvis without intravenous contrast HISTORY: right flank pain r/o kidney stone/hydro COMPARISON: 08/14/2017 CT TECHNIQUE: Without contrast. Contrast Dose: Radiation dose: Total exam DLP = Total exam DLP = 266 mGy-cm. This CT exam was performed using one or more of the following dose reduction techniques: Automated exposure control, adjustment of the mA and/or kV according to patient size, and/or use of iterative reconstruction technique. FINDINGS: LOWER THORAX: Unremarkable. LIVER: There is a TIPS stent in place GALLBLADDER AND BILE DUCTS: Unremarkable. PANCREAS: Unremarkable. No gross lesion or ductal dilatation. SPLEEN: Severe splenomegaly ADRENALS: Unremarkable. No mass. KIDNEYS AND URETERS: There is a 5 mm stone in the right mid ureter. There is mild hydronephrosis. Small nonobstructing stones are also seen in the right kidney. The left kidney is unremarkable VASCULATURE: Unremarkable. No aortic aneurysm. BOWEL: Unremarkable. No obstruction. No gross mural thickening. APPENDIX: Unremarkable. Normal appendix. PERITONEUM: Unremarkable. No free fluid. No free air. LYMPH NODES: Unremarkable. No enlarged lymph nodes. BLADDER: Unremarkable. REPRODUCTIVE: Unremarkable. BONES: No acute fracture. OTHER FINDINGS: None. IMPRESSION: There is no change in the position or appearance of the 5 mm stone in the right mid ureter with mild hydronephrosis
[2017-08-17 15:21] VITALS: BP 110/67; PULSE 64; RESP 14
== END 2017-08-17 15:24 | disposition home or self-care (01) ==
LOC: ED 11:49
DX: N23 Unspecified renal colic (principal)
CPT/HCPCS: 74176; 80053; 81001; 85025; 96374; 96375; 99283; J1885; J2001; J2405